=== PATIENT | male | born 1985 | race Caucasian/White ===

== ENCOUNTER 2018-08-02 01:54 | Emergency (ER) | payer MEDICAID, SELFPAY ==
[2018-08-02 01:55] VITALS: BP 150/87; PULSE 88; RESP 18; TEMP 36.6; O2SAT 98; BMI 27.7
--- NOTE | 2018-08-02 02:10 | ED.VISSUMM ---
- ER Visit Summary Date of Service: 08/02/18 Chief Complaint: Anxiety attack History of Present Illness: The patient is a 32 M no significant past medical history other than a prior appendectomy. Patient states he has not seen a doctor for a period of time. Recently received Medicaid insurance. He said he felt anxious about all the tests he needs to get done because he has not had any medical care recently. Said that may be more anxious tonight and he is having a hard time getting calm down. He has had a few anxiety attacks in the past. Physical Examination: Well-appearing young male. Vital signs are stable and afebrile. Pulse ox 90% on room air no signs of hypoxia. HEENT exam normal. Neck nontender. No lymphadenopathy. No thyromegaly. Lungs clear to auscultation bilaterally. Heart regular rate and rhythm rate about 90. No murmurs. Chest nontender. Abdomen soft nontender. Normal bowel sounds no peritoneal signs. Extremities moves all 4. Calves nontender without edema or cords. Normal range of motion to all 4 extremities. 5 out of 5 physician president strength bilaterally. Dorsi plantar flexion intact. Back nontender. Skin unremarkable. Neurologically he is anxious but is awake and alert with no focal motor or sensory deficits. Acting appropriately and answering questions. Test Results: None Emergency Department Course and Treatment: Patient will be referred to local primary care physician for follow-up Treatment Plan: Outpatient follow-up with a local PCP Disposition: Discharge Impression: Acute anxiety attack This note was generated with [employer] dictation software. It may contain incorrect words, spelling, and punctuation that were not noted in review of the chart prior to signing ED Disposition - Plan for ED Patient: Referrals: NOT,DEFINED [Primary Care Provider] -
--- NOTE | 2018-08-02 02:12 | ED.DEP ---
ED Disposition - Plan for ED Patient: Disposition: Home or Assisted Living Instructions: ED Panic Attack Referrals: Hermann Faustin MD [STAFF PHYSICIAN] - 1-2 Weeks Additional Instructions: Call follow-up with a local primary care physician. Stop smoking.
[2018-08-02] MEDS: DiphenhydrAMINE 25 MG Capsule 50 MG PO (02:16)
== END 2018-08-02 02:17 | disposition home or self-care (01) ==
PROVIDERS: Emergency Provider Emergency Medicine
DX: F41.0 Panic disorder [episodic paroxysmal anxiety] (principal); Z72.0 Tobacco use
CPT/HCPCS: 99282

== ENCOUNTER 2018-11-18 15:55 | Observation (INO) | payer MEDICAID, SELFPAY ==
[2018-11-18] VITALS (8 sets, daily range): BP systolic 128–141; BP diastolic 75–93; PULSE 73–92; RESP 16; TEMP 36.8–37.1; O2SAT 96–99; BMI 27.6; BMI 26.3
--- NOTE | 2018-11-18 16:06 | RAD_ITS ---
STUDY: X-RAY CHEST REASON FOR EXAM: Male, 32 years old. Chest pain TECHNIQUE: Portable chest COMPARISON: None. FINDINGS: The lungs are clear and expanded. There is no demonstrated pleural abnormality. Normal size heart. Normal mediastinum and elizabeth. Normal visualized pulmonary arteries. Normal visualized aortic arch and descending thoracic aorta. Normal visualized thoracic spine. Normal visualized ribs, clavicles, and shoulders. There is no demonstrated abnormality of the visualized soft tissue structures of the upper abdomen. RAD/Chest 1 View (Portable) IMPRESSION: Normal x-ray examination of the chest. Electronically Signed: Rl Aceves, at 16:20 EDT Tel , Service support ,
--- NOTE | 2018-11-18 16:06 | EKG12_ITS ---
Test Reason : CP ADMIT EKG Blood Pressure : / mmHG Vent. Rate : 084 BPM Atrial Rate : 084 BPM P-R Int : 164 ms QRS Dur : 082 ms QT Int : 358 ms P-R-T Axes : 069 071 045 degrees QTc Int : 423 ms Normal sinus rhythm Normal ECG When compared with ECG of 18-NOV-2018 15:59, MANUAL COMPARISON REQUIRED, DATA IS UNCONFIRMED Confirmed by LIMA WEBB, JAZMYNE ([id number]), content editor JASON CAZARES ([id number]) on 11/30/2018 2:54:36 PM Referred By: Fariha Larson Confirmed By:JAZMYNE AMATO MD
--- NOTE | 2018-11-18 16:10 | ED.DCSUM_ITS ---
- ER Visit Summary Date of Service: 11/18/18 Chief Complaint: Chest pain History of Present Illness: The patient is a 32 M presenting with chest pain. 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 He began to have midsternal chest pain, 4 out of 10 with radiation to his left shoulder. He states he had shortness of breath, diaphoresis, lightheadedness associated with this. The pain lasted approximately 1 hour. He had no syncope. He denies PE/DVT risk factors. He has a history of hypercholesterolemia that is untreated and family history of heart disease. He is a smoker. Physical Examination: Vitals are stable. Patient is afebrile. Alert no acute distress. HEENT exam is unremarkable. Neck is supple. Lungs are clear and equal bilaterally. Heart is regular rate and rhythm. Abdomen is soft nontender nondistended. Extremities are unremarkable. Skin is warm and dry. No focal neurologic deficit. Remainder of exam is unremarkable. Emergency Department Course and Treatment: Patient was given aspirin on arrival. EKG is sinus rate of 88 with no acute ischemic changes. Chest x-ray shows no acute process. CBC shows white count 12.1. Chemistries unremarkable. Troponin is negative. D-dimer negative. On reevaluation, patient is chest pain-free. Discussed with the hospitalist for observation. Disposition: Observation Impression: Chest pain This note was generated with [employer] dictation software. It may contain incorrect words, spelling, and punctuation that were not noted in review of the chart prior to signing ED Disposition - Plan for ED Patient: Referrals: Care Physician,No Primary [Primary Care Provider] -
[2018-11-18] MEDS: Aspirin 81 MG TAB.CHEW 324 MG PO (16:13)
[2018-11-18 16:15] LABS: Absolute Lymphocyte Count 1.83 X10^3/ul (0.83-4.51); Absolute Neutrophil Count 8.9 X10^3/uL (2.0-7.7); Basophil# 0.07 X10^3/uL; Basophil% 0.6 % (0-1); Eosinophil# 0.35 X10^3/uL; Eosinophils% 2.9 % (0-5); Hematocrit 47.5 % (40-54); Hemoglobin 16.7 g/dl (13.0-16.5); Lymphocyte # 1.83 X10^3/ul (4.0); Lymphocyte % 15.1 % (19-41); Mean Corp Hgb Conc 35.2 g/gl (32-36); Mean Corpuscular Hgb 32.2 pg (27.0-32.0); Mean Corpuscular Volume 91.7 fL (80-94); Mean Platelet Vol. 9.9 fl (6.2-12.0); Monocyte# 0.99 X10^3/uL; Monocyte% 8.2 % (0-10); Neutrophil # 8.85 X10^3/uL (2.7-7.7); Neutrophil % 72.8 % (47-70); Platelet Count 262 K/mm3 (150-450); RBC Distribution Width CV 12.9 % (11.6-14.6); Red Blood Count 5.18 M/mm3 (4.6-6.2); White Blood Count 12.1 K/mm3 (4.4-11.0)
[2018-11-18 16:16] LABS: POSITIVE COUNT NO; POSITIVE DIFFERENTIAL NO; POSITIVE MORPHOLOGY NO
[2018-11-18 16:27] LABS: Anion Gap 5 (5-15); BUN 17 mg/dL (7-18); Calcium,Total 8.9 mg/dL (8.5-10.1); Chloride 105 mmol/L (98-107); EST Glomerular Filtration Rate 90 mL/min (>60); Est Glom Filt Rate - Afr Amer 109 mL/min (>60); Estimated Creatinine Clearance 107.47 ml/min; Glucose 90 mg/dL (74-106); Potassium 3.9 mmol/L (3.5-5.1); Sodium Level 138 mmol/L (136-145)
[2018-11-18 17:10] LABS: D-Dimer Quantitative (DVT/PE) < 0.27 FEU/ug/m (0.27-0.49)
[2018-11-18 18:19] LABS: Hemoglobin A1c 5.5 % (4.2-6.3)
--- NOTE | 2018-11-18 18:26 | PCM.HP.STD ---
Problem List (1) Dyslipidemia Status: Acute (2) Nicotine dependence Status: Chronic Qualifiers: Nicotine product type: cigarettes Substance use status: uncomplicated Qualified Code(s): F17.210 - Nicotine dependence, cigarettes, uncomplicated (3) Alcohol dependence Status: Chronic Qualifiers: Substance use status: uncomplicated Qualified Code(s): F10.20 - Alcohol dependence, uncomplicated (4) Chest pain Status: Acute Qualifiers: Chest pain type: unspecified Qualified Code(s): R07.9 - Chest pain, unspecified (5) Anxiety Status: Chronic History of Present Illness Date of Admission: 11/18/18 Chief Complaint: Chest pain-1 day The patient is a 32 year old M with past medical history of anxiety disorder/panic attacks, nicotine dependence, alcohol dependence who comes in with complaints of chest pain that happened on the day of admission. 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 He was at work when he suddenly had stabbing midsternal chest discomfort that lasted for almost 30 minutes. This was followed soon enough by diaphoresis and lightheadedness. He denied any palpitations. He suddenly also felt very fatigued and felt like he needed to take a nap immediately. The chest discomfort seemed to have moved a little bit to the left shoulder and down the arm. He denied any previous symptoms like this. He has history of panic attacks that comes with palpitations and some chest tightness but nothing like this. Vitals in the ED show temperature of 90 8.3F, heart rate 92, blood pressure 141/90, respiratory 16, SPO2 99% on room air. His admitting blood work showed WBC count of 12.1, hemoglobin 16.7, platelet count of 262, d-dimer was less than 0.27, BMP was unremarkable, HbA1c was 5.5. Admitting chest x-ray was unremarkable. Admitting EKG shows normal sinus rhythm, no acute ST-T changes. Past Medical History Past Medical History (Chronic Problems): Chronic Problems Nicotine dependence (Chronic) Alcohol dependence (Chronic) Anxiety (Chronic) Allergies Penicillins [PCN] Allergy (Verified 11/18/18 15:58) Unknown Home Medications: Ambulatory Orders Medication Instructions Recorded NK 08/02/18 Surgical History: no surgical history Psychiatric History: Anxiety Lives: Alone Smoking Status: Current every day smoker Tobacco Use: Cigarettes Alcohol: Heavy Drugs: Marijuana - occasional - *Family History Maternal History Items: No pertinent history Paternal History Items: No pertinent history Review of Systems Constitutional: Denies: Anorexia, Chills, Fever, Weakness, Weight Change Eyes: Denies: Blurred vision, Cataracts, Conjunctivae Inflammation, Double vision, Redness HEENT: Denies: Difficulty Hearing, Difficulty Swallowing, Head Aches, Hearing Changes, Sinus Congestion, Sinus Drainage Cardiovascular: Reports: Chest Pain, Light Headedness. Denies: Palpitations, Paroxysmal Noc. Dyspnea Respiratory: Denies: Cough, Hemoptysis, Shortness of breath at rest, Shortness of breath upon exertion, Sputum production Gastrointestinal: Denies: Abdominal Pain, Hematemesis, Nausea, Vomiting Genitourinary: Denies: Dysuria, Frequency, Incontinence Musculoskeletal: Denies: Joint Pain, Joint stiffness, Joint swelling, Joint Tenderness Skin: Denies: Rash, Wounds Neurological: Denies: Numbness, Tingling, Focal weakness Psychiatric: Denies: Anxiety, Depression, Homicidal Ideations, Suicidal Ideations Hematologic/ Lymphatic: Denies: Easy Bruising, Easy Bleeding VTE Information - Inpt Only VTE Present on Admission: No VTE Pharm Prophylaxis ordered?: Yes Patient Problems: Active and Suspected Problems Dyslipidemia (Acute) Chest pain (Acute) - Physical Exam General: Alert, Oriented x3, Cooperative, No apparent distress HEENT: Atraumatic, PERRLA, EOMI, Normocephalic Oral: Moist Mucosa Neck: Supple, No JVD, Negative Carotid Bruits Lungs: Clear to auscultation, Normal air movement Cardiovascular: Regular rate, Regular Rhythm, Normal S1, Normal S2, No murmurs Abdomen: Bowel Sounds Present, Soft, Non Tender, Non-Distended, No Hepato-splenomegaly Extremities: No edema Skin: No rashes, No breakdown Musculoskeletal: No Tenderness to Palpation of Joints or Extremities Lymphatic: No Cervical, Supraclavicular, or Inguinal Adenopathy Neurological: Cranial nerves II-XII grossly intact, Neuro grossly intact Psych/Mental Status: Normal Affect, Appropriate Vital Signs Temp Pulse Resp BP Pulse Ox 98.8 F 80 16 131/93 H 97 11/18/18 17:59 11/18/18 18:05 11/18/18 17:59 11/18/18 17:59 11/18/18 17:59 Oxygen Delivery Method Room Air Weight: 83.461 kg Body Mass Index (BMI) 26.3 Laboratory Tests Past 24 Hrs 11/18/18 11/18/18 11/18/18 15:57 15:57 15:57 WBC 12.1 H RBC 5.18 Hgb 16.7 H Hct 47.5 MCV 91.7 MCH 32.2 H MCHC 35.2 RDW 12.9 RDW Differential 43.0 Plt Count 262 MPV 9.9 Immature Gran % (Auto) 0.400 Neut % (Auto) 72.8 H Lymph % (Auto) 15.1 L [place] % (Auto) 8.2 Eos % (Auto) 2.9 Baso % (Auto) 0.6 Absolute Neuts (auto) 8.9 H Absolute Lymphs (auto) 1.83 Total Counted Not Reportable D-Dimer Quant (PE/DVT) < 0.27 L Sodium 138 Potassium 3.9 Chloride 105 Carbon Dioxide 28.0 Anion Gap 5 BUN 17 Creatinine 1.00 Estim Creat Clear Calc 107.47 Est GFR (MDRD) Af Amer 109 Est GFR (MDRD) Non-Af 90 BUN/Creatinine Ratio 17.0 Glucose 90 Hemoglobin A1c Calcium 8.9 Troponin I < 0.015 11/18/18 15:57 WBC RBC Hgb Hct MCV MCH MCHC RDW RDW Differential Plt Count MPV Immature Gran % (Auto) Neut % (Auto) Lymph % (Auto) [place] % (Auto) Eos % (Auto) Baso % (Auto) Absolute Neuts (auto) Absolute Lymphs (auto) Total Counted D-Dimer Quant (PE/DVT) Sodium Potassium Chloride Carbon Dioxide Anion Gap BUN Creatinine Estim Creat Clear Calc Est GFR (MDRD) Af Amer Est GFR (MDRD) Non-Af BUN/Creatinine Ratio Glucose Hemoglobin A1c 5.5 Calcium Troponin I Assessment/Plan All Active Problems Dyslipidemia (Acute) Chest pain (Acute) 32 year old M with past medical history of anxiety disorder/panic attacks, nicotine dependence, alcohol dependence who comes in with complaints of chest pain that happened on the day of admission. 1. Chest pain, atypical, history of hyperlipidemia, smoking, stable vitals, normal EKG Plan: Mid to PCU, monitor on telemetry, trend troponins, stress test in a.m., aspirin 81 mg p.o. daily 2. Leukocytosis, likely reactive, no signs of sepsis, will trend CBCD in a.m. 3. Hyperlipidemia, not on medications, diet controlled, check lipid profile in a.m. 4. Nicotine dependence, advised to quit, will continue nicotine withdrawal protocol 5. Alcohol dependence, advised to quit, will monitor on the CIWA protocol 6. DVT PPx- early ambulation Code Visit OBSV E&M: 95203 Initial observation care L3
--- NOTE | 2018-11-18 18:33 | EKG12_ITS ---
Test Reason : CP Blood Pressure : / mmHG Vent. Rate : 088 BPM Atrial Rate : 088 BPM P-R Int : 164 ms QRS Dur : 078 ms QT Int : 342 ms P-R-T Axes : 076 081 056 degrees QTc Int : 413 ms Normal sinus rhythm with sinus arrhythmia Possible Left atrial enlargement Borderline ECG Confirmed by JONNATHAN COHEN ([id number]), editor city [place] CROFT ([id number]) on 11/26/2018 8:58:58 AM Referred By: Fariha Larson Confirmed By:JONNATHAN COHEN
--- NOTE | 2018-11-19 | NURSING ---
This RN removed patient NicoDerm patch due to stress test scheduled for tomorrow morning and following stress test policy.
[2018-11-19 03:00] VITALS: PULSE 72
[2018-11-19 03:25] VITALS: BP 115/68; PULSE 64; RESP 16; TEMP 36.7; O2SAT 96
[2018-11-19] MEDS: 0.9% NaCl Peripheral Flush Adult/Peds IV (03:53)
[2018-11-19 05:27] LABS: Hematocrit 47.9 % (40-54); Hemoglobin 16.7 g/dl (13.0-16.5); Mean Corp Hgb Conc 34.9 g/gl (32-36); Mean Corpuscular Hgb 31.8 pg (27.0-32.0); Mean Corpuscular Volume 91.2 fL (80-94); Mean Platelet Vol. 9.9 fl (6.2-12.0); Platelet Count 240 K/mm3 (150-450); RBC Distribution Width CV 12.9 % (11.6-14.6); RBC Distribution Width SD 43.1 fl (35.1-43.9); Red Blood Count 5.25 M/mm3 (4.6-6.2); White Blood Count 8.4 K/mm3 (4.4-11.0)
[2018-11-19 05:28] LABS: Scan Indicated on CBC? Y/N NO
[2018-11-19 05:32] LABS: International Normalized Ratio 1.1; Prothrombin Time (Protime)PT. 13.5 SECONDS (11.7-14.9)
[2018-11-19 05:33] LABS: Partial Thromboplast Time 27.8 Seconds (24.1-36.2)
[2018-11-19 05:42] LABS: Anion Gap 6 (5-15); BUN 13 mg/dL (7-18); BUN/Creat Ratio 12.9 RATIO (10-20); Calcium,Total 8.5 mg/dL (8.5-10.1); Chloride 106 mmol/L (98-107); Cholesterol 196 mg/dL (200); Creatinine, Serum 1.01 mg/dL (0.70-1.30); EST Glomerular Filtration Rate 89 mL/min (>60); Est Glom Filt Rate - Afr Amer 108 mL/min (>60); Estimated Creatinine Clearance 106.41 ml/min; Glucose 101 mg/dL (74-106); High Density Lipoprotein 44 mg/dL; Potassium 3.9 mmol/L (3.5-5.1); Sodium Level 140 mmol/L (136-145); Triglycerides 171 mg/dL; Very Low Density Lipoprotein 34 mg/dL (5-40)
[2018-11-19 05:46] VITALS: BP 128/84; PULSE 68; RESP 16; TEMP 36.6; O2SAT 96
[2018-11-19] MEDS: Aspirin E.C. 81 MG Tablet PO (05:48)
--- NOTE | 2018-11-19 05:55 | EKG12_ITS ---
Test Reason : AM EKG Blood Pressure : / mmHG Vent. Rate : 060 BPM Atrial Rate : 060 BPM P-R Int : 176 ms QRS Dur : 088 ms QT Int : 418 ms P-R-T Axes : 078 083 068 degrees QTc Int : 418 ms Normal sinus rhythm with sinus arrhythmia Normal ECG When compared with ECG of 18-NOV-2018 18:53, MANUAL COMPARISON REQUIRED, DATA IS UNCONFIRMED Confirmed by LIMA WEBB, JAZMYNE ([id number]), continuity editor JASON CAZARES ([id number]) on 11/25/2018 12:10:56 PM Referred By: Fariha Larson Confirmed By:JAZMYNE AMATO MD
[2018-11-19 07:18] VITALS: PULSE 62
[2018-11-19 09:10] VITALS: BP 128/77; PULSE 87; RESP 18; TEMP 36.9; O2SAT 98
--- NOTE | 2018-11-19 11:52 | DCINST_ITS ---
- Discharge Diagnoses Current Active Problems: Current Active and Chronic Problems Dyslipidemia (Acute) Nicotine dependence (Chronic) Alcohol dependence (Chronic) Chest pain (Acute) Anxiety (Chronic) You will use the following diet at home:: No restrictions Discharge Activity: Return to Normal Activity Call your doctor if you observe: Shortness of breath, Dizziness, Fainting spells, Chest pain Allergies/Adverse Reactions: Allergies Penicillins [PCN] Allergy (Verified 11/18/18 15:58) Unknown Medications to take at Discharge NK 08/02/18 Primary Care Physician: Care Physician,No Primary [Primary Care Provider] - Please follow up with your Primary Care Physician in: 1 Week Test Results: Test results from this visit will be discussed in further detail at your follow- up appointment, if applicable. Proposed Discharge Date: 11/19/18
--- NOTE | 2018-11-19 11:56 | DS.PCM_ITS ---
<Whitney Patton - Last Filed: 11/19/18 12:57> Discharge Date and Diagnosis Date of Admission: 11/18/18 Date of Discharge: 11/19/18 - Primary Discharge Diagnosis Active and Suspected Problems 1. Atypical chest pain, ACS ruled out 2. Tobacco dependence 3. Alcohol dependence - Secondary Discharge Diagnosis Chronic Problems Nicotine dependence (Chronic) Alcohol dependence (Chronic) Anxiety (Chronic) Hospital Course and Treatment Imaging Results: Diagnostic Data Chest X-Ray 11/18/18 16:06 IMPRESSION: Normal x-ray examination of the chest. Electronically Signed: Rl Aceves, at 16:20 EDT Tel , Service support , Operations: None Procedures: Stress test Summary of Care Provided: The patient is a 32 year old M admitted 11/18/2018 due to chest pain. 1. Atypical chest pain, ACS ruled out-chest x-ray without acute process. Troponin negative. EKG without ST-T changes. Patient underwent stress test which was negative for ischemia. Patient has untreated anxiety disorder and feel this may be contributing to presenting symptoms. Recommend follow-up with primary care provider in 1 week. 2. Tobacco dependence-encouraged tobacco cessation. 3. Alcohol dependence-encouraged alcohol cessation. General: Alert, Oriented x3, Cooperative, No apparent distress HEENT: Atraumatic, PERRLA, EOMI, Normocephalic Oral: Moist Mucosa Neck: Supple, No JVD, Negative Carotid Bruits Lungs: Clear to auscultation, Normal air movement Cardiovascular: Regular rate, Regular Rhythm, Normal S1, Normal S2, No murmurs Abdomen: Bowel Sounds Present, Soft, Non Tender, Non-Distended, No Hepato- splenomegaly Extremities: No edema Skin: No rashes, No breakdown Musculoskeletal: No Tenderness to Palpation of Joints or Extremities Lymphatic: No Cervical, Supraclavicular, or Inguinal Adenopathy Neurological: Cranial nerves II-XII grossly intact, Neuro grossly intact Psych/Mental Status: Normal Affect, Appropriate Patient seen and examined prior to discharge. Physical assessment as noted above. Patient is stable for discharge with follow up recommendations as noted above. This patient was seen by KEON Miranda under the supervision of Dr. Almaraz. - Physical Exam Vital Signs Temp Pulse Resp BP Pulse Ox 98.4 F 87 18 128/77 H 98 11/19/18 09:10 11/19/18 09:10 11/19/18 09:10 11/19/18 09:10 11/19/18 09:10 Oxygen Delivery Method Room Air Weight: 184 lb Body Mass Index (BMI) 26.3 Intake and Output for Last 24 Hours 11/17/18 11/18/18 11/19/18 23:59 23:59 23:59 Intake Total 500 / 500 Balance 500 / 500 Laboratory Tests Past 24 Hrs 11/18/18 11/18/18 11/18/18 15:57 15:57 15:57 WBC 12.1 H RBC 5.18 Hgb 16.7 H Hct 47.5 MCV 91.7 MCH 32.2 H MCHC 35.2 RDW 12.9 RDW Differential 43.0 Plt Count 262 MPV 9.9 Immature Gran % (Auto) 0.400 Neut % (Auto) 72.8 H Lymph % (Auto) 15.1 L [place] % (Auto) 8.2 Eos % (Auto) 2.9 Baso % (Auto) 0.6 Absolute Neuts (auto) 8.9 H Absolute Lymphs (auto) 1.83 Total Counted Not Reportable PT INR APTT D-Dimer Quant (PE/DVT) < 0.27 L Sodium 138 Potassium 3.9 Chloride 105 Carbon Dioxide 28.0 Anion Gap 5 BUN 17 Creatinine 1.00 Estim Creat Clear Calc 107.47 Est GFR (MDRD) Af Amer 109 Est GFR (MDRD) Non-Af 90 BUN/Creatinine Ratio 17.0 Glucose 90 Hemoglobin A1c Calcium 8.9 Troponin I < 0.015 Triglycerides Cholesterol LDL Cholesterol VLDL Cholesterol HDL Cholesterol 11/18/18 11/18/18 11/18/18 15:57 18:45 21:35 WBC RBC Hgb Hct MCV MCH MCHC RDW RDW Differential Plt Count MPV Immature Gran % (Auto) Neut % (Auto) Lymph % (Auto) [place] % (Auto) Eos % (Auto) Baso % (Auto) Absolute Neuts (auto) Absolute Lymphs (auto) Total Counted PT INR APTT D-Dimer Quant (PE/DVT) Sodium Potassium Chloride Carbon Dioxide Anion Gap BUN Creatinine Estim Creat Clear Calc Est GFR (MDRD) Af Amer Est GFR (MDRD) Non-Af BUN/Creatinine Ratio Glucose Hemoglobin A1c 5.5 Calcium Troponin I < 0.015 < 0.015 Triglycerides Cholesterol LDL Cholesterol VLDL Cholesterol HDL Cholesterol 11/19/18 11/19/18 11/19/18 05:00 05:00 05:00 WBC 8.4 RBC 5.25 Hgb 16.7 H Hct 47.9 MCV 91.2 MCH 31.8 MCHC 34.9 RDW 12.9 RDW Differential 43.1 Plt Count 240 MPV 9.9 Immature Gran % (Auto) Neut % (Auto) Lymph % (Auto) [place] % (Auto) Eos % (Auto) Baso % (Auto) Absolute Neuts (auto) Absolute Lymphs (auto) Total Counted PT 13.5 INR 1.1 APTT 27.8 D-Dimer Quant (PE/DVT) Sodium 140 Potassium 3.9 Chloride 106 Carbon Dioxide 28.0 Anion Gap 6 BUN 13 Creatinine 1.01 Estim Creat Clear Calc 106.41 Est GFR (MDRD) Af Amer 108 Est GFR (MDRD) Non-Af 89 BUN/Creatinine Ratio 12.9 Glucose 101 Hemoglobin A1c Calcium 8.5 Troponin I Triglycerides 171 Cholesterol 196 LDL Cholesterol 118 VLDL Cholesterol 34 HDL Cholesterol 44 Discharge Diet: No Restrictions Discharge Activity: Return to Normal Activity Call your doctor if you observe: Shortness of breath, Dizziness, Fainting spells, Chest pain Home Medications: Medications to take at Discharge NK 08/02/18 Primary Care Physician: Care Physician,No Primary [Primary Care Provider] - Please follow up with your Primary Care Physician in: 1 Week Disposition: Home Minutes spent on discharge:: 35 Patient Condition:: Stable Medical Necessity - Tobacco Use Smoking Status: Current every day smoker Tobacco Use: Cigarettes Meaningful Use Info Meaningful Use Diagnoses (Choose all that apply): None applicable <Shelia Almaraz - Last Filed: 11/19/18 14:43> Discharge Date and Diagnosis - Secondary Discharge Diagnosis Chronic Problems Nicotine dependence (Chronic) Alcohol dependence (Chronic) Anxiety (Chronic) Hospital Course and Treatment Summary of Care Provided: Patient seen by Whitney HERBERT under my supervision The patient is a 32 year old M was admitted with a complaint of chest pain which started while she was at work. He thought it was due to anxiety as his job is very stressful. Troponins x3 were negative and EKG showed no acute ST changes. He had a stress test on 11/16/2018 which was also negative. Patient remained stable and was discharged home on 11/19/2018. He was counseled to quit smoking as patient had more to 1 pack daily smoking habit. Is also to follow-up with his primary care doctor for his anxiety. Patient seen and examined prior to discharge. He had no complaints. Chest pain abdominal pain. Review of systems otherwise negative. Labs and vitals reviewed. Home medication reviewed and reconciled. o/e: Vital Signs Height 5 ft 10.08 in Weight: 184 lb Weight in Pounds 184.0 lbs Pulse Ox 98 Temperature 98.4 F Pulse Rate 87 Respiratory Rate 18 Blood Pressure 128/77 Blood Pressure Position Semi-Fowlers [] General: Alert, Oriented x3, Cooperative, No apparent distress HEENT: Atraumatic, PERRLA, EOMI, Normocephalic Oral: Moist Mucosa Neck: Supple, No JVD, Negative Carotid Bruits Lungs: Clear to auscultation, Normal air movement Cardiovascular: Regular rate, Regular Rhythm, Normal S1, Normal S2, No murmurs Abdomen: Bowel Sounds Present, Soft, Non Tender, Non-Distended, No Hepato- splenomegaly Extremities: No edema Skin: No rashes, No breakdown Musculoskeletal: No Tenderness to Palpation of Joints or Extremities Lymphatic: No Cervical, Supraclavicular, or Inguinal Adenopathy Neurological: Cranial nerves II-XII grossly intact, Neuro grossly intact Psych/Mental Status: Normal Affect, Appropriate I have personally reviewed Whitney Patton's note and endorse it. - Physical Exam Vital Signs Temp Pulse Resp BP Pulse Ox 98.4 F 87 18 128/77 H 98 11/19/18 09:10 11/19/18 09:10 11/19/18 09:10 11/19/18 09:10 11/19/18 09:10 Oxygen Delivery Method Room Air Weight: 184 lb Body Mass Index (BMI) 26.3 Intake and Output for Last 24 Hours 11/17/18 11/18/18 11/19/18 23:59 23:59 23:59 Intake Total 1250 / 1250 Balance 1250 / 1250 Laboratory Tests Past 24 Hrs 11/18/18 11/18/18 11/18/18 15:57 15:57 15:57 WBC 12.1 H RBC 5.18 Hgb 16.7 H Hct 47.5 MCV 91.7 MCH 32.2 H MCHC 35.2 RDW 12.9 RDW Differential 43.0 Plt Count 262 MPV 9.9 Immature Gran % (Auto) 0.400 Neut % (Auto) 72.8 H Lymph % (Auto) 15.1 L [place] % (Auto) 8.2 Eos % (Auto) 2.9 Baso % (Auto) 0.6 Absolute Neuts (auto) 8.9 H Absolute Lymphs (auto) 1.83 Total Counted Not Reportable PT INR APTT D-Dimer Quant (PE/DVT) < 0.27 L Sodium 138 Potassium 3.9 Chloride 105 Carbon Dioxide 28.0 Anion Gap 5 BUN 17 Creatinine 1.00 Estim Creat Clear Calc 107.47 Est GFR (MDRD) Af Amer 109 Est GFR (MDRD) Non-Af 90 BUN/Creatinine Ratio 17.0 Glucose 90 Hemoglobin A1c Calcium 8.9 Troponin I < 0.015 Triglycerides Cholesterol LDL Cholesterol VLDL Cholesterol HDL Cholesterol 11/18/18 11/18/18 11/18/18 15:57 18:45 21:35 WBC RBC Hgb Hct MCV MCH MCHC RDW RDW Differential Plt Count MPV Immature Gran % (Auto) Neut % (Auto) Lymph % (Auto) [place] % (Auto) Eos % (Auto) Baso % (Auto) Absolute Neuts (auto) Absolute Lymphs (auto) Total Counted PT INR APTT D-Dimer Quant (PE/DVT) Sodium Potassium Chloride Carbon Dioxide Anion Gap BUN Creatinine Estim Creat Clear Calc Est GFR (MDRD) Af Amer Est GFR (MDRD) Non-Af BUN/Creatinine Ratio Glucose Hemoglobin A1c 5.5 Calcium Troponin I < 0.015 < 0.015 Triglycerides Cholesterol LDL Cholesterol VLDL Cholesterol HDL Cholesterol 11/19/18 11/19/18 11/19/18 05:00 05:00 05:00 WBC 8.4 RBC 5.25 Hgb 16.7 H Hct 47.9 MCV 91.2 MCH 31.8 MCHC 34.9 RDW 12.9 RDW Differential 43.1 Plt Count 240 MPV 9.9 Immature Gran % (Auto) Neut % (Auto) Lymph % (Auto) [place] % (Auto) Eos % (Auto) Baso % (Auto) Absolute Neuts (auto) Absolute Lymphs (auto) Total Counted PT 13.5 INR 1.1 APTT 27.8 D-Dimer Quant (PE/DVT) Sodium 140 Potassium 3.9 Chloride 106 Carbon Dioxide 28.0 Anion Gap 6 BUN 13 Creatinine 1.01 Estim Creat Clear Calc 106.41 Est GFR (MDRD) Af Amer 108 Est GFR (MDRD) Non-Af 89 BUN/Creatinine Ratio 12.9 Glucose 101 Hemoglobin A1c Calcium 8.5 Troponin I Triglycerides 171 Cholesterol 196 LDL Cholesterol 118 VLDL Cholesterol 34 HDL Cholesterol 44 Code Visit Inpatient E&M: 70741 Disch Hosp
--- NOTE | 2018-11-19 11:58 | STRESSREP ---
Stress Test Report Date: 11/19/2018 Procedure: Exercise tolerance test Indications: Chest pain Consent: Per the patient Procedure: The patient exercised on a Jamel protocol for 11 minutes achieving a peak heart rate of 171 bpm (91 % predicted maximal heart rate) with a peak blood pressure 168/76 mmHg and a peak MET capacity of approximately 13.4 mET's. The baseline ECG demonstrated normal sinus rhythm with diffuse ST elevation suggestive of early repolarization. Mild MA depression in multiple leads raises a suspicion of acute pericarditis however the disappearance of ST elevation with exercise is more suggestive of early repolarization. The peak exercise ECG demonstrated sinus tachycardia with no significant ischemic changes. [There were no cardiac dysrhythmias pretest, during exercise, or recovery]. The functional capacity was considered normal for age. The patient had no complaint of chest discomfort during exercise or recovery. The examination was discontinued secondary to leg discomfort. Impression: 1. Technically adequate (percent predicted maximal heart rate greater than 85%) exercise tolerance test 2. Exercise stress test is negative for exercise-induced EKG changes of ischemia or chest pain. 3. [There were no cardiac dysrhythmias during exercise or recovery] This note was generated with [employer]ation software. It may contain incorrect words, spelling, and punctuation that were not noted in checking the note before signing.
--- NOTE | 2018-11-19 12:01 | STRESSREP_ITS ---
Stress Test Report Date: 11/19/2018 Procedure: Exercise tolerance test Indications: Chest pain Consent: Per the patient Procedure: The patient exercised on a Jamel protocol for 11 minutes achieving a peak heart rate of 171 bpm (91 % predicted maximal heart rate) with a peak blood pressure 168/76 mmHg and a peak MET capacity of approximately 13.4 mET's. The baseline ECG demonstrated normal sinus rhythm with diffuse ST elevation suggestive of early repolarization. Mild DC depression in multiple leads raises a suspicion of acute pericarditis however the disappearance of ST elevation with exercise is more suggestive of early repolarization. The peak exercise ECG demonstrated sinus tachycardia with no significant ischemic changes. [There were no cardiac dysrhythmias pretest, during exercise, or recovery]. The functional capacity was considered normal for age. The patient had no complaint of chest discomfort during exercise or recovery. The examination was discontinued secondary to leg discomfort. Impression: 1. Technically adequate (percent predicted maximal heart rate greater than 85%) exercise tolerance test 2. Exercise stress test is negative for exercise-induced EKG changes of ischemia or chest pain. 3. [There were no cardiac dysrhythmias during exercise or recovery] This note was generated with [employer] software. It may contain incorrect words, spelling, and punctuation that were not noted in checking the note before signing.
--- NOTE | 2018-11-19 13:37 | CHAPLAIN ---
Type of Pastoral Visit _x__ Initial Visit ___ Follow-up Visit ___ On-call Visit ___ General Patient Visit ___ Spiritual Assessment ___ Family Conference ___ Bereavement ___ Rapid Response ___ Code Blue ___ Other (describe below) Pastoral Care Referral From _x__ Patient ___ Family ___ Nurse ___ Physician ___ School Based Therapist ___ Automotive Lube Technician ___ Other (describe below) Sacrament/Intervention _x__ Active listening ___ Anointing ___ Uatsdin ___ Bereavement ___ Communion ___ Natali exploration ___ ___ Life review _x__ Prayer ___ Reconciliation ___ Sacrament of Sick _x__ Supportive presence ___ Wedding ___ Other (describe below) Pastoral Comments
== END 2018-11-19 11:51 | disposition home or self-care (01) ==
LOC: ED 16:22 → PCU 17:29
PROVIDERS: Admitting Provider Internal Medicine; Emergency Provider Emergency Medicine; Referring Provider Internal Medicine; Visit Provider Student in an Organized Health Care Education/Training Program
DX: R07.89 Other chest pain (principal); R06.02 Shortness of breath; R42 Dizziness and giddiness; Z82.49 Family history of ischemic heart disease and other diseases of the circulatory system; E78.5 Hyperlipidemia, unspecified; F17.210 Nicotine dependence, cigarettes, uncomplicated; F10.20 Alcohol dependence, uncomplicated; D72.829 Elevated white blood cell count, unspecified
CPT/HCPCS: 36415; 71045; 80048; 80061; 83036; 84484; 85025; 85027; 85379; 85610; 85730; 93005; 93017; 99218; 99285; A4216; G0378

== ENCOUNTER → 2018-12-15 | Outpatient (CLI) | payer MEDICAID, SELFPAY ==
[2018-11-18 17:53] VITALS: BMI 26.3
[2018-12-15 10:52] LABS: Absolute Lymphocyte Count 2.17 X10^3/ul (0.83-4.51); Basophil% 1.3 % (0-1); Eosinophil# 0.56 X10^3/uL; Eosinophils% 7.3 % (0-5); Hematocrit 47.6 % (40-54); Hemoglobin 16.4 g/dl (13.0-16.5); Lymphocyte # 2.17 X10^3/ul (4.0); Lymphocyte % 28.4 % (19-41); Mean Corp Hgb Conc 34.5 g/gl (32-36); Mean Platelet Vol. 10.3 fl (6.2-12.0); Monocyte# 0.82 X10^3/uL; Monocyte% 10.7 % (0-10); Neutrophil # 3.98 X10^3/uL (2.7-7.7); Platelet Count 262 K/mm3 (150-450); RBC Distribution Width CV 13.2 % (11.6-14.6); RBC Distribution Width SD 43.9 fl (35.1-43.9); Red Blood Count 5.12 M/mm3 (4.6-6.2); White Blood Count 7.7 K/mm3 (4.4-11.0)
[2018-12-15 10:55] LABS: POSITIVE COUNT NO; POSITIVE DIFFERENTIAL NO; POSITIVE MORPHOLOGY NO
[2018-12-15 11:02] LABS: ALB/GLOB Ratio 1.3 RATIO (0.9-2.4); AST(SGOT) 17 U/L (15-37); Alanine Aminotransfer ALT/SGPT 47 U/L (16-61); Albumin, Serum 3.9 g/dL (3.2-5.0); Alkaline Phosphatase 69 U/L (45-117); Anion Gap 10 (5-15); BUN 15 mg/dL (7-18); BUN/Creat Ratio 16.1 RATIO (10-20); Calcium,Total 8.7 mg/dL (8.5-10.1); Chloride 105 mmol/L (98-107); Cholesterol 193 mg/dL (200); Creatinine, Serum 0.93 mg/dL (0.70-1.30); EST Glomerular Filtration Rate 98 mL/min (>60); Est Glom Filt Rate - Afr Amer 119 mL/min (>60); Globulin 3.1 g/dL (2.2-4.2); Glucose 96 mg/dL (74-106); High Density Lipoprotein 46 mg/dL; Sodium Level 142 mmol/L (136-145); Triglycerides 162 mg/dL; Very Low Density Lipoprotein 32 mg/dL (5-40)
[2018-12-15 11:08] LABS: Vitamin D,25 Hydroxy 21.4 ng/mL (29.95-100.01)
== END | disposition home or self-care (01) ==
LOC: MTLAB 07:11
PROVIDERS: Family Provider Family Medicine; PCP Family Medicine; Referring Provider Family Medicine; Visit Provider Family Medicine
DX: E78.5 Hyperlipidemia, unspecified (principal); E55.9 Vitamin D deficiency, unspecified; F17.200 Nicotine dependence, unspecified, uncomplicated
CPT/HCPCS: 36415; 80053; 80061; 82306; 85025

== ENCOUNTER → 2018-12-16 | Outpatient (CLI) | payer MEDICAID, SELFPAY ==
[2018-11-18 17:53] VITALS: BMI 26.3
[2018-12-16 07:17] LABS: Bacteria 0 SEEN /hpf (None Seen); Mucous, Urine 0 SEEN /hpf (<or=2+); Red Blood Cells-Urine 0 SEEN /hpf (0-5); Squamous Epithelial Cells - UA 0 SEEN /hpf (0-5); White Blood Cells 0 SEEN /hpf (0-5)
[2018-12-16 09:56] LABS: Color, Urine Yellow (Yellow); Glucose, Dipstick Normal (Normal); Ketone-Dipstick 5 mg/dl (Negative); Leukocyte Esterase-Dipstick Negative /ul (Negative); Nitrite-Dipstick Negative (Negative); Occult Blood-Urine Negative /ul (Negative); Protein-Dipstick Negative (Negative); Specific Gravity, Urine 1.025 (1.002-1.030); Urine Bilirubin Dipstick Negative (Negative); Urine Clarity Clear (Clear); Urine Urobilinogen Normal (Normal)
== END | disposition home or self-care (01) ==
LOC: LAB.FUTURE 07:11
PROVIDERS: Family Provider Family Medicine; PCP Family Medicine; Referring Provider Family Medicine; Visit Provider Family Medicine
DX: E78.5 Hyperlipidemia, unspecified (principal); E55.9 Vitamin D deficiency, unspecified; F17.200 Nicotine dependence, unspecified, uncomplicated
CPT/HCPCS: 81001

== ENCOUNTER → 2019-03-26 07:16 | Outpatient (CLI) | payer MEDICAID, SELFPAY ==
[2019-03-24 07:17] VITALS: BMI 26.7
[2019-03-26 10:49] LABS: Vitamin D,25 Hydroxy 41.4 ng/mL (29.95-100.01)
== END ==
PROVIDERS: Family Provider Family Medicine; PCP Family Medicine; Referring Provider Family Medicine; Visit Provider Family Medicine
DX: E55.9 Vitamin D deficiency, unspecified (principal)
CPT/HCPCS: 36415; 82306

== ENCOUNTER → 2019-04-29 13:09 | Outpatient (CLI) | payer MEDICAID, SELFPAY ==
[2019-03-24 07:17] VITALS: BMI 26.7
== END ==
PROVIDERS: Family Provider Family Medicine; PCP Family Medicine; Referring Provider Internal Medicine Critical Care Medicine; Visit Provider Internal Medicine Critical Care Medicine
DX: G47.10 Hypersomnia, unspecified (principal)
CPT/HCPCS: 95806

== ENCOUNTER → 2019-06-03 20:37 | Outpatient (CLI) | payer MEDICAID, SELFPAY ==
[2019-03-24 07:17] VITALS: BMI 26.7
== END ==
PROVIDERS: Family Provider Family Medicine; PCP Family Medicine; Referring Provider Nurse Practitioner Acute Care; Visit Provider Nurse Practitioner Acute Care
DX: G47.33 Obstructive sleep apnea (adult) (pediatric) (principal)
CPT/HCPCS: 95811

== ENCOUNTER → 2019-06-04 16:25 | Outpatient (CLI) | payer MEDICAID, SELFPAY ==
[2019-03-24 07:17] VITALS: BMI 26.7
== END ==
PROVIDERS: Family Provider Family Medicine; PCP Family Medicine; Referring Provider Family Medicine; Visit Provider Family Medicine
DX: E55.9 Vitamin D deficiency, unspecified (principal)
CPT/HCPCS: 36415; 82306

== ENCOUNTER → 2019-06-18 12:59 | Outpatient (CLI) | payer MEDICAID, SELFPAY ==
[2019-03-24 07:17] VITALS: BMI 26.7
--- NOTE | 2019-06-21 08:15 | PFT ---
INTRODUCTION: The patient is a 33-year-old male that presents for pulmonary function studies secondary to a diagnosis of dyspnea. Respiratory therapy reports good patient effort. Bronchodilators were used during testing. INTERPRETATION: Forced expiration spirometry demonstrates the presence of a mild large airways obstructive ventilatory defect. There was a partial, albeit technically nonsignificant, response to aerosolized bronchodilators. Spirograms are of good quality and do not plateau indicating slow emptying of the lungs. Body plethysmography was performed which revealed lung volumes to be within normal limits. Diffusing capacity by single breath CO is also within normal limits. IMPRESSION: Mild large airways obstructive ventilatory defect with partial, albeit technically nonsignificant, response to aerosolized bronchodilators.
== END ==
PROVIDERS: Family Provider Family Medicine; PCP Family Medicine; Referring Provider Internal Medicine Critical Care Medicine; Visit Provider Internal Medicine Critical Care Medicine
DX: R06.09 Other forms of dyspnea (principal)
CPT/HCPCS: 94060; 94726; 94729

== ENCOUNTER → 2019-11-12 13:59 | Outpatient (CLI) | payer MEDICAID, SELFPAY ==
[2019-09-24 12:49] VITALS: BMI 26.8
== END ==
PROVIDERS: PCP Family Medicine; Visit Provider Nurse Practitioner Acute Care
DX: G47.33 Obstructive sleep apnea (adult) (pediatric) (principal)
CPT/HCPCS: 98960; G0463

== ENCOUNTER → 2020-04-14 15:47 | Outpatient (CLI) | payer MEDICAID, SELFPAY ==
[2019-09-24 12:49] VITALS: BMI 26.8
[2020-04-14 17:49] LABS: Vitamin D,25 Hydroxy 29.3 ng/mL
== END ==
PROVIDERS: PCP Family Medicine; Referring Provider Family Medicine; Visit Provider Family Medicine
DX: E55.9 Vitamin D deficiency, unspecified (principal)
CPT/HCPCS: 36415; 82306

== ENCOUNTER 2020-08-05 00:06 | Emergency (ER) | payer BC, MEDICAID, SELFPAY ==
[2019-09-24 12:49] VITALS: BMI 26.8
[2020-08-05 00:07] VITALS: BP 123/73; PULSE 82; RESP 16; TEMP 36.5; O2SAT 98; BMI 26.9
--- NOTE | 2020-08-05 00:19 | EKG12_ITS ---
Test Reason : CP Blood Pressure : / mmHG Vent. Rate : 078 BPM Atrial Rate : 078 BPM P-R Int : 174 ms QRS Dur : 090 ms QT Int : 376 ms P-R-T Axes : 073 073 046 degrees QTc Int : 428 ms Normal sinus rhythm with sinus arrhythmia Normal ECG Confirmed by LIMA WEBB, JAZMYNE ([id number]), content editor RICO CROFT ([id number]) on 08/07/2020 2:20:20 PM Referred By: Confirmed By:JAZMYNE AMATO MD
[2020-08-05 00:57] VITALS: BP 126/85; PULSE 78; RESP 16; O2SAT 97
--- NOTE | 2020-08-05 00:59 | ED.VIS.GEN ---
History of Present Illness Chief Complaint: Upper Extremity Injury Informant: Patient Narrative: 34-year-old healthy male states that approximately 2200 hrs. today he was attempting to move a heavy dresser. States that after he moved it he began to have a numbness sensation in his left arm traveled down to his hand. Developed the same sensation up to his neck tightness across his chest and he noticed that he was more diaphoretic than what he should be. He began to wonder if he was potentially having a heart attack. He now only notes the tightness in his chest. He states he also has a history of anxiety and states that that could be playing a factor. No familial history of early heart disease. No history of aortic dissection or aneurysm. Past Medical History - Allergies and Home Meds Allergies/Adverse Reactions: Allergies Penicillins [PCN] Allergy (Verified 07/16/19 11:12) Unknown Primary Care Physician: Edward Jose MD [Primary Care Provider] - Past Medical History: None Surgical History: no surgical history Smoking Status: Current every day smoker Drugs: None - Family History Maternal Family History: Family History (Last Reviewed 01/28/20 @ 10:12 by Whitney Austin) Grandfather Cancer Father Hypertension Mother Diabetes Family History: Reports: No pertinent history Paternal Family History: Family History (Last Reviewed 01/28/20 @ 10:12 by Whitney Austin) Grandfather Cancer Father Hypertension Mother Diabetes Family History: Reports: No pertinent history Review of Systems General: Denies: Chills, Fever, Sweats Eyes: Denies: Visual changes - bilaterally, Diplopia ENT: Denies: Rhinorrhea, Sore throat Cardiovascular: Reports: Chest pain. Denies: Palpitations Respiratory: Denies: Dyspnea, Cough, Dyspnea on exertion Gastrointestinal: Denies: Abdominal pain, Nausea, Vomiting, Diarrhea, Melena, Hematochezia Genitourinary: Denies: Dysuria, Hematuria, Frequency Musculoskeletal: Denies: Back pain, Extremity Pain Skin: Reports: - - Diaphoresis. Denies: Rash, Wounds Neurological: Reports: Parasthesia. Denies: Headache, Weakness, Numbness Physical Exam Vital Signs/Narrative: Vital Signs Temp Pulse Resp BP Pulse Ox 08/05/20 00:57 78 16 126/85 H 97 08/05/20 00:07 97.7 F L 82 16 123/73 H 98 Inital Vital Signs reviewed: Yes General: Well nourished, Well developed, No Acute Distress Head: Normocephalic, Atraumatic Eyes: Perrl, EOMI ENT: Moist mucous membranes, No rhinorrhea Neck: Supple, Nontender Cardiovascular: Regular rate, Regular rhythm, No murmurs Respiratory: No distress, CTA bilaterally, Chest nontender Abdomen: Soft, Nontender, Nondistended, Normal bowel sounds Back: Nontender, Normal Inspection Extremities: Nontender, No edema Skin: Normal color, No rash Neurological: Alert, Oriented x3, Cranial nerves II-XII grossly intact, Normal Strength, Normal Sensation Psychological: Normal affect, Normal Mood Diagnostic/Tx/Re-eval Laboratory Last Values WBC 10.0 K/mm3 (4.4-11.0) 08/05/20 01:00 RBC 4.83 M/mm3 (4.6-6.2) 08/05/20 01:00 Hgb 15.5 g/dL (13.0-16.5) 08/05/20 01:00 Hct 44.9 % (40-54) 08/05/20 01:00 MCV 93.0 fL (80-94) 08/05/20 01:00 MCH 32.1 pg (27.0-32.0) H 08/05/20 01:00 MCHC 34.5 g/dL (32-36) 08/05/20 01:00 RDW Std Deviation 42.8 fl (35.1-43.9) 08/05/20 01:00 RDW Coeff of Dianna 12.5 % (11.6-14.6) 08/05/20 01:00 Plt Count 224 K/mm3 (150-450) 08/05/20 01:00 MPV 9.7 fl (6.2-12.0) 08/05/20 01:00 Immature Gran % (Auto) 0.300 % (0.0-0.9) 08/05/20 01:00 Neut % (Auto) 68.5 % (47-70) 08/05/20 01:00 Lymph % (Auto) 19.9 % (19-41) 08/05/20 01:00 [place] % (Auto) 7.5 % (0-10) 08/05/20 01:00 Eos % (Auto) 2.9 % (0-5) 08/05/20 01:00 Baso % (Auto) 0.9 % (0-1) 08/05/20 01:00 Absolute Neuts (auto) 6.8 X10^3/uL (2.0-7.7) 08/05/20 01:00 Absolute Lymphs (auto) 1.99 X10^3/uL (0.83-4.51) 08/05/20 01:00 Nucleated RBC % 0 % (0-5) 08/05/20 01:00 Sodium 137 mmol/L (136-145) 08/05/20 01:00 Potassium 3.8 mmol/L (3.5-5.1) 08/05/20 01:00 Chloride 107 mmol/L (98-107) 08/05/20 01:00 Carbon Dioxide 27.0 mmol/L (21.0-32.0) 08/05/20 01:00 Anion Gap 3 (5-15) L 08/05/20 01:00 BUN 15 mg/dL (7-18) 08/05/20 01:00 Creatinine 0.99 mg/dL (0.70-1.30) 08/05/20 01:00 Estim Creat Clear Calc 106.51 ml/min 08/05/20 01:00 Est GFR (MDRD) Af Amer 110 mL/min (>60) 08/05/20 01:00 Est GFR (MDRD) Non-Af 91 mL/min (>60) 08/05/20 01:00 BUN/Creatinine Ratio 15.2 RATIO (10-20) 08/05/20 01:00 Glucose 106 mg/dL (74-106) 08/05/20 01:00 Calcium 8.7 mg/dL (8.5-10.1) 08/05/20 01:00 Troponin I < 0.015 ng/mL (<0.045) 08/05/20 01:00 - EKG Initial EKG Interpretation: Sinus Rhythm - EKG demonstrates a normal sinus rhythm at a rate of 78 without ectopy or concerning features of ACS - Medical Decision Making Troponin negative. EKG normal sinus rhythm. My interpretation on the single view portable chest x-ray is no acute process normal mediastinal silhouette. This point I do not see evidence of ACS. His symptoms are a bit atypical. I do not think that this is pulmonary embolism, aortic dissection, or other acute emergency. Patient otherwise feels okay is comfortable going home. Return if worsening or concerns ED Disposition - Plan for ED Patient: Disposition: Home or Assisted Living Diagnosis: Chest pain, Paresthesia Instructions: ED Chest Pain, Uncertain Cause Referrals: Edward Jose MD [Primary Care Provider] - 1 Week
[2020-08-05 01:03] LABS: Absolute Lymphocyte Count 1.99 X10^3/uL (0.83-4.51); Absolute Neutrophil Count 6.8 X10^3/uL (2.0-7.7); Basophil# 0.09 X10^3/uL; Basophil% 0.9 % (0-1); Eosinophil# 0.29 X10^3/uL; Eosinophils% 2.9 % (0-5); Hematocrit 44.9 % (40-54); Hemoglobin 15.5 g/dL (13.0-16.5); Lymphocyte # 1.99 X10^3/ul (4.0); Lymphocyte % 19.9 % (19-41); Mean Corp Hgb Conc 34.5 g/dL (32-36); Mean Corpuscular Hgb 32.1 pg (27.0-32.0); Mean Platelet Vol. 9.7 fl (6.2-12.0); Monocyte# 0.75 X10^3/uL; Monocyte% 7.5 % (0-10); NRBC Flagged by Analyzer 0 % (0-5); Neutrophil # 6.84 X10^3/uL (2.7-7.7); Neutrophil % 68.5 % (47-70); Platelet Count 224 K/mm3 (150-450); RBC Distribution Width CV 12.5 % (11.6-14.6); RBC Distribution Width SD 42.8 fl (35.1-43.9); Red Blood Count 4.83 M/mm3 (4.6-6.2)
--- NOTE | 2020-08-05 01:09 | RAD_ITS ---
STUDY: X-RAY CHEST REASON FOR EXAM: Male, 34 years old. PT LIFTED A HEAVY DRESSER A FEW HOURS AGO. SINCE THEN HAS HAD LEFT ARM NUMBNESS AND TINGLING THAT EXTENDS UP TO NECK. SOME TIGHTNESS ACROSS CHEST TECHNIQUE: Single AP portable view of the chest. COMPARISON: None. FINDINGS: The lungs are clear and expanded. There is no demonstrated pleural abnormality. Normal size heart. Normal mediastinum and elizabeth. Normal visualized pulmonary arteries. Normal visualized aortic arch and descending thoracic aorta. Normal visualized thoracic spine. Normal visualized ribs, clavicles, and shoulders. There is no demonstrated abnormality of the visualized soft tissue structures of the upper abdomen. RAD/Chest 1 View (Portable) IMPRESSION: Normal x-ray examination of the chest. Electronically Signed: Marlena Guerrero MD at 1:51 EST Tel , Service support ,
[2020-08-05 01:20] LABS: Anion Gap 3 (5-15); BUN 15 mg/dL (7-18); BUN/Creat Ratio 15.2 RATIO (10-20); Calcium,Total 8.7 mg/dL (8.5-10.1); Chloride 107 mmol/L (98-107); Creatinine, Serum 0.99 mg/dL (0.70-1.30); EST Glomerular Filtration Rate 91 mL/min (>60); Est Glom Filt Rate - Afr Amer 110 mL/min (>60); Estimated Creatinine Clearance 106.51 ml/min; Glucose 106 mg/dL (74-106); Potassium 3.8 mmol/L (3.5-5.1); Sodium Level 137 mmol/L (136-145)
== END 2020-08-05 02:13 | disposition home or self-care (01) ==
PROVIDERS: Emergency Provider Emergency Medicine; PCP Family Medicine
DX: R07.89 Other chest pain (principal); R20.2 Paresthesia of skin; R20.0 Anesthesia of skin; F41.9 Anxiety disorder, unspecified; F17.200 Nicotine dependence, unspecified, uncomplicated
CPT/HCPCS: 71045; 80048; 84484; 85025; 93005; 99284; A4216

== ENCOUNTER → 2020-08-25 11:29 | Outpatient (CLI) | payer BC, MEDICAID, SELFPAY ==
[2020-08-22 09:18] VITALS: BMI 25.8
[2020-08-25 15:00] LABS: Chlamydia Trachomatis by PCR Negative (Negative); Neisserai gonorrhoeae by PCR Negative (Negative); Probe Check PASS; Sample Adequacy Control PASS; Specimen Processing Control PASS
[2020-08-25 16:09] LABS: HIV - WCH Non-Reactive (Nonreactive)
[2020-08-29 07:07] LABS: HSV 1 By PCR Negative (Negative)
[2020-08-29 10:16] LABS: HSV 2 By PCR Negative (Negative)
== END ==
PROVIDERS: PCP Family Medicine; Referring Provider Physician Assistant Surgical; Visit Provider Physician Assistant Surgical
DX: Z11.3 Encounter for screening for infections with a predominantly sexual mode of transmission (principal); Z76.89 Persons encountering health services in other specified circumstances
CPT/HCPCS: 36415; 86703; 87491; 87529; 87591

== ENCOUNTER → 2020-08-25 13:01 | Outpatient (CLI) | payer BC, MEDICAID, SELFPAY ==
[2019-09-24 12:49] VITALS: BMI 26.8
[2020-08-22 09:18] VITALS: BMI 25.8
--- NOTE | 2020-08-26 08:46 | PFT_ITS ---
INTRODUCTION: The patient is a 34-year-old -[place] male that presents for pulmonary function studies secondary to a diagnosis of COPD. Respiratory therapy reports good patient effort. Bronchodilators were used during testing. INTERPRETATION: Forced expiration spirometry demonstrates the presence of a mild large airways obstructive ventilatory defect. There was a significant response to aerosolized bronchodilators noted. Spirograms are of good quality and do not plateau indicating slow emptying of the lungs. Body plethysmography was performed and reveals lung volumes to be within normal limits. Diffusing capacity by single breath CO is also within normal limits. There has been little change in the patient's pulmonary function studies since May 2019. IMPRESSION: Partially reversible mild large airways obstructive ventilatory defect with preserved lung volumes and diffusing capacity. There has been no significant change in the patient's PFTs since May 2019.
== END ==
PROVIDERS: PCP Family Medicine; Referring Provider Internal Medicine Critical Care Medicine; Visit Provider Internal Medicine Critical Care Medicine
DX: J44.9 Chronic obstructive pulmonary disease, unspecified (principal)
CPT/HCPCS: 94060; 94726; 94729

== ENCOUNTER 2020-09-20 17:42 | Emergency (ER) | payer BC, MEDICAID, SELFPAY ==
[2020-09-01 11:20] VITALS: BMI 25.5
[2020-09-20 17:43] VITALS: BP 140/87; PULSE 103; RESP 14; TEMP 37.1; O2SAT 97; BMI 25.8
--- NOTE | 2020-09-20 18:07 | CT_ITS ---
STUDY: CTA HEAD AND NECK WITH CONTRAST REASON FOR EXAM: Male, 34 years old. headache, paraesthesias right RADIATION DOSAGE (If Supplied By Facility): CTDIvol = ( 26.61 ) mGy, DLP = ( 1539.37 ) mGycm TECHNIQUE: CT angiography was performed with a multi-detector CT scanner. Data acquisition was obtained from the skull base through the vertex following intravenous administration of IV 100mL Isovue-370. MIP images were reconstructed from the axial data set. Post-processing of the angiographic images was performed, with multiplanar reformation and 3D reconstruction. Individualized dose optimization techniques were used for this CT. COMPARISON: No relevant priors. FINDINGS: Normal bilateral petrous and cavernous carotid arteries. Anterior cerebral arteries bilaterally. Normal intact anterior communicating artery (ACOM). Normal M1 and M2 segments of the middle cerebral arteries, with normal M1 bifurcations. There is non-visualization of the right posterior communicating artery (PCOM). Normal left posterior communicating artery (PCOM). Normal bilateral vertebral arteries. Normal basilar artery with a normal basilar bifurcation. The visualized bilateral superior cerebellar (SCA) arteries are normal. Normal bilateral P1, P2 and visualized P3 segments of the posterior cerebral arteries. There is no demonstrated aneurysm of the [place]. AORTIC ARCH: Normal visualized aortic arch. Normal origins of the brachiocephalic, left common carotid, and left subclavian arteries. RIGHT CAROTID ARTERIES: Normal right common carotid artery (CCA). Normal right common carotid bulb. Normal origin of the right internal carotid (ICA) artery without stenosis. Normal visualized cervical portion of the right internal carotid artery. Normal origin of the right external carotid artery (ECA). LEFT CAROTID ARTERIES: Normal left common carotid artery (CCA). Normal left common carotid bulb. Normal origin of the left internal carotid (ICA) artery without stenosis. Normal visualized cervical portion of the left internal carotid artery. Normal origin of the left external carotid artery (ECA). VERTEBRAL ARTERIES: Normal bilateral vertebral arteries. CT/CTA Head AND Neck W/ Contrast IMPRESSION: Normal CTA Head and neck with contrast. Electronically Signed: Rocio Auguste MD at 19:54 EDT Tel , Service support ,
[2020-09-20 18:27] LABS: Absolute Lymphocyte Count 1.64 X10^3/uL (0.83-4.51); Absolute Neutrophil Count 9.7 X10^3/uL (2.0-7.7); Basophil# 0.09 X10^3/uL; Basophil% 0.7 % (0-1); Eosinophil# 0.31 X10^3/uL; Eosinophils% 2.4 % (0-5); Hematocrit 45.9 % (40-54); Hemoglobin 15.8 g/dL (13.0-16.5); Lymphocyte # 1.64 X10^3/ul (4.0); Lymphocyte % 12.9 % (19-41); Mean Corp Hgb Conc 34.4 g/dL (32-36); Mean Corpuscular Hgb 31.8 pg (27.0-32.0); Mean Corpuscular Volume 92.4 fL (80-94); Mean Platelet Vol. 9.4 fl (6.2-12.0); Monocyte# 0.83 X10^3/uL; Monocyte% 6.6 % (0-10); NRBC Flagged by Analyzer 0 % (0-5); Neutrophil # 9.73 X10^3/uL (2.7-7.7); Neutrophil % 76.8 % (47-70); Platelet Count 234 K/mm3 (150-450); RBC Distribution Width CV 12.7 % (11.6-14.6); Red Blood Count 4.97 M/mm3 (4.6-6.2); White Blood Count 12.7 K/mm3 (4.4-11.0)
[2020-09-20 18:38] LABS: Anion Gap 5 (5-15); BUN 13 mg/dL (7-18); BUN/Creat Ratio 13.1 RATIO (10-20); Calcium,Total 8.7 mg/dL (8.5-10.1); Chloride 104 mmol/L (98-107); Creatinine, Serum 0.99 mg/dL (0.70-1.30); EST Glomerular Filtration Rate 90 mL/min (>60); Est Glom Filt Rate - Afr Amer 109 mL/min (>60); Estimated Creatinine Clearance 106.51 ml/min; Glucose 98 mg/dL (74-106); Potassium 3.8 mmol/L (3.5-5.1); Sodium Level 136 mmol/L (136-145)
--- NOTE | 2020-09-20 18:49 | ED.DCSUM_ITS ---
- ER Visit Summary Date of Service: 09/20/20 Chief Complaint: [Headache] History of Present Illness: The patient is a 34 M [presents to the emergency department with a headache that he said for about a week. Patient describes this pressure on top of his head on the right side and also intermittent numbness and tingling that kind of radiates on the right side of his face. He is never had discomfort like this before. Typically does not get migraines or headaches. He denies recent illness. He denies Covid exposures. He denies falls or head injuries. No family history of brain tumors or aneurysms. Patient does have history of COPD as well as cholesterol, anxiety, and prior history of alcohol abuse. Patient states that he no longer drinks alcohol. Patient also states that recently he diminished his caffeine intake significantly over the last week.] Patient denies any dental pain or dental issues. Physical Examination: [HEENT-PERRLA, EOMI. Cranial nerves II through XII grossly intact. TMs clear. Mucous membranes moist. No adenopathy. Cardiovascular-regular rate and rhythm without murmur or ectopy Lungs-clear to auscultation, chest wall stable without crepitus or subcu emphysema Abdomen-normoactive bowel sounds, soft, nontender, no rebound or rigidity, no peritoneal signs. Neuro valy-leqsdq-jcdt and heel vaughn testing within normal limits, negative Romberg, negative for drift, fundi benign Extremities-intact ?4, normal range of motion, normal pulses, atraumatic] Test Results: [CBC with differential shows slightly elevated white blood cell count of 12.7, hemoglobin 15.8, hematocrit 46, platelets 234. Chemistries unremarkable. COVID-19 test was negative. CTA of the head and neck was normal.] Emergency Department Course and Treatment: [IV line established. Patient was given Reglan, Benadryl, and Toradol and his headache did seem to improve with that.] Treatment Plan: [Patient advised to follow-up with his primary care physician within next 3 to 5 days. Patient advised to push fluids. Etiology of his headache is unclear although caffeine withdrawal certainly could cause some headache and this could also be atypical migraine.] Disposition: [Discharged home in stable condition] Impression: [Cephalgia] This note was generated with [employer] software. It may contain incorrect words, spelling, and punctuation that were not noted in review of the chart prior to signing ED Disposition - Plan for ED Patient: Referrals: Edward Jose MD [Primary Care Provider] -
[2020-09-20] MEDS: DiphenhydrAMINE 50 MG/ML Syringe 25 MG IV (21:15)
[2020-09-20] MEDS: 0.9% Normal Saline 1,000 ML 999 ML IV (21:15)
[2020-09-20] MEDS: Metoclopramide 10 MG/2 ML Vial IV (21:15)
[2020-09-20] MEDS: Ketorolac 30 MG/ML Syringe IV (21:15)
--- NOTE | 2020-09-20 21:37 | ED.DEP ---
ED Disposition - Plan for ED Patient: Instructions: ED Headache Unspecified Referrals: Edward Jose MD [Primary Care Provider] - 3-5 Days
[2020-09-20 21:59] VITALS: BP 110/79; PULSE 70; RESP 16; O2SAT 98
== END 2020-09-20 22:03 | disposition home or self-care (01) ==
PROVIDERS: Emergency Provider Emergency Medicine; PCP Family Medicine
DX: R51.9 Headache, unspecified (principal); R20.0 Anesthesia of skin; R20.2 Paresthesia of skin; J44.9 Chronic obstructive pulmonary disease, unspecified; Z20.822 Contact with and (suspected) exposure to COVID-19; F41.9 Anxiety disorder, unspecified; Z72.0 Tobacco use
CPT/HCPCS: 70496; 70498; 80048; 85025; 87426; 96361; 96374; 96375; 99283; J7030; Q9967; A4216

== ENCOUNTER → 2021-01-05 06:25 | Outpatient (CLI) | payer BC, MEDICAID, SELFPAY ==
[2020-11-21 15:18] VITALS: BMI 25.8
[2020-12-27 14:00] VITALS: BMI 25.8
--- NOTE | 2021-01-05 06:41 | MRI_ITS ---
STUDY: MRI BRAIN WITH AND WITHOUT CONTRAST REASON FOR EXAM: Male, 35 years old. R FACIAL NUMBNESS, POSTERIOR HEADACHES TECHNIQUE: Standardized multiplanar fat and water weighted pulse sequences were obtained. IV 15 cc dotarem was administered for the contrast portion of the examination. COMPARISON: None. FINDINGS: Normal size of the ventricles and extra-axial spaces for the patient''s age. Normal white matter tracts of the supratentorial brain. There is no evidence for recent intracranial ischemia or other cause of cytotoxic edema on diffusion weighted imaging (DWI). Normal T2* images of the brain without demonstrated susceptibility artifact. There is no demonstrated hemosiderin stain. Normal bilateral basal ganglia. Normal thalami. There is no extra-axial fluid accumulation. Normal flow voids within the major intracranial circulation suggesting patency by spin echo criteria. Normal venous enhancement. There is no enhancing intra-axial or extra-axial abnormality. Normal sella turcica, pituitary gland, infundibular stalk, optic chiasm and hypothalamus. Normal tectal plate and pineal gland. Normal midbrain, mary beht and medulla. Normal cerebellum. Normal basal cisterns. Normal bilateral temporal bones. Normal bilateral internal auditory canals. No demonstrated orbital abnormality, within the constraints of a routine brain study. Normal visualized paranasal sinuses. Normal calvarium and skull base. Normal visualized soft tissue structures. Normal visualized upper cervical spine. MRI/Brain W/WO Contrast IMPRESSION: Normal unenhanced and enhanced MRI of the brain. Electronically Signed: Brandon Petty MD at 11:51 EDT Tel , Service support ,
== END ==
PROVIDERS: PCP Family Medicine; Referring Provider Family Medicine; Visit Provider Family Medicine
DX: R20.0 Anesthesia of skin (principal)
CPT/HCPCS: 70553; A9575

== ENCOUNTER → 2021-01-25 09:17 | Outpatient (CLI) | payer BC, MEDICAID, SELFPAY ==
[2021-01-25 08:17] VITALS: BMI 21.2
--- NOTE | 2021-01-25 09:20 | RAD_ITS ---
STUDY: X-RAY - CERVICAL SPINE REASON FOR EXAM: Male, 35 years old. Neck pain and headache TECHNIQUE: 3 view(s) of the cervical spine were obtained. COMPARISON: None FINDINGS: Normal anterior atlantoaxial articulation. Normal odontoid process. Normal cervical lordosis. Normal vertebral bodies and endplates. Normal disc space heights. Normal visualized intervertebral neuroforamina. The soft tissue structures are unremarkable. RAD/Cerv Spine 2 or 3 Views IMPRESSION: Normal x-ray examination of the visualized cervical spine. Electronically Signed: Alex Hollingsworth MD at 7:53 EDT , Service support ,
== END ==
PROVIDERS: PCP Family Medicine; Referring Provider Psychiatry & Neurology Neurology; Visit Provider Psychiatry & Neurology Neurology
DX: M54.2 Cervicalgia (principal)
CPT/HCPCS: 72040

== ENCOUNTER → 2021-06-27 | Outpatient (CLI) | payer BC, MEDICAID, SELFPAY | END | disposition home or self-care (01) | PROVIDERS: PCP Family Medicine; Referring Provider Physician Assistant; Visit Provider Physician Assistant | DX: Z11.52 Encounter for screening for COVID-19 (principal) | CPT/HCPCS: 87635; U0005; U0003 ==

== ENCOUNTER → 2023-01-01 | Outpatient (CLI) | payer BC, MEDICAID, SELFPAY ==
[2023-01-01 13:03] LABS: Absolute Lymphocyte Count 2.24 X10^3/uL (0.83-4.51); Absolute Neutrophil Count 5.4 X10^3/uL (2.0-7.7); Basophil# 0.11 X10^3/uL; Basophil% 1.2 % (0-1); Eosinophil# 0.68 X10^3/uL; Eosinophils% 7.3 % (0-5); Hematocrit 47.2 % (40-54); Hemoglobin 16.2 g/dL (13.0-16.5); Lymphocyte # 2.24 X10^3/ul (0.83-4.51); Lymphocyte % 23.9 % (19-41); Mean Corp Hgb Conc 34.3 g/dL (32-36); Mean Corpuscular Volume 93.3 fL (80-94); Mean Platelet Vol. 10.2 fl (6.2-12.0); Monocyte# 0.86 X10^3/uL; Monocyte% 9.2 % (0-10); NRBC Flagged by Analyzer 0 % (0-5); Neutrophil # 5.43 X10^3/uL (2.7-7.7); Neutrophil % 57.9 % (47-70); Platelet Count 229 K/mm3 (150-450); RBC Distribution Width CV 13.1 % (11.6-14.6); RBC Distribution Width SD 44.6 fl (35.1-43.9); Red Blood Count 5.06 M/mm3 (4.6-6.2); White Blood Count 9.4 K/mm3 (4.4-11.0)
[2023-01-01 14:01] LABS: ALB/GLOB Ratio 1.3 RATIO (0.9-2.4); AST(SGOT) 18 U/L (15-37); Alanine Aminotransfer ALT/SGPT 45 U/L (16-61); Albumin, Serum 3.8 g/dL (3.2-5.0); Alkaline Phosphatase 57 U/L (45-117); Anion Gap 7 (5-15); BUN 15 mg/dL (7-18); BUN/Creat Ratio 14.3 RATIO (10-20); Calcium,Total 8.8 mg/dL (8.5-10.1); Chloride 109 mmol/L (98-107); Creatinine, Serum 1.05 mg/dL (0.70-1.30); EST Glomerular Filtration Rate 84 mL/min (>60); Est Glom Filt Rate - Afr Amer 101 mL/min (>60); Glucose 97 mg/dL (74-106); Potassium 3.9 mmol/L (3.5-5.1); Protein, Total 6.8 g/dL (6.4-8.2); Sodium Level 139 mmol/L (136-145)
== END | disposition home or self-care (01) ==
PROVIDERS: PCP Family Medicine; Visit Provider Family Medicine
DX: R10.11 Right upper quadrant pain (principal)
CPT/HCPCS: 36415; 80053; 85025

== ENCOUNTER → 2023-01-11 | Outpatient (CLI) | payer BC, MEDICAID, SELFPAY ==
--- NOTE | 2023-01-11 09:11 | US_ITS ---
ACR Level 3 findings have been noted. An addendum which confirms receipt of the report will follow. PROCEDURE: ABDOMINAL ULTRASOUND, RIGHT UPPER QUADRANT COMPARISONS: None. CLINICAL INDICATION: RUQ ABD PAIN TECHNIQUE: Real-time acosta-scale abdominal ultrasound. Limited color Doppler evaluation is performed. FINDINGS: Liver: Normal in size with diffusely increased echotexture. Hypoechoic focus at the capsular surface of the left lobe measures 1.7 x 1.6 x 1.5 cm. Appropriate hepatopetal flow is present in the main portal vein. Gallbladder: Normal wall thickness. No gallstones. Sonographic Reyna''s sign is absent. No pericholecystic fluid is present. Biliary Tree: Nondilated. Common bile duct measures 5 mm. Pancreas: Limited evaluation of the head and body is unremarkable. Right kidney: Normal in size and echogenicity. No hydronephrosis or stones. The right kidney measures 10.2 cm in long axis. No free fluid. US/Abdomen Limited IMPRESSION: Diffuse fatty infiltration of the liver. Focal area of hypoechoic echotexture in the left lobe may represent focus of fatty sparing but other etiology not excluded. Recommend dedicated multiphasic hepatic CT or MRI for further evaluation. No acute findings in the right upper quadrant. Electronically Signed: Danilo Julien MD at 23:40 EDT ,
== END | disposition home or self-care (01) ==
PROVIDERS: PCP Family Medicine; Referring Provider Family Medicine; Visit Provider Family Medicine
DX: R10.11 Right upper quadrant pain (principal)
CPT/HCPCS: 76705

== ENCOUNTER → 2023-01-14 | Outpatient (CLI) | payer BC, MEDICAID, SELFPAY ==
--- NOTE | 2023-01-14 17:58 | CT_ITS ---
INDICATION: LIVER MASS EXAMINATION: CT ABDOMEN WITH AND WITHOUT CONTRAST TECHNIQUE: Helically acquired images were obtained of the abdomen both before and after IV contrast, capturing both the cortical and nephrographic phases. A radiation dose optimization technique was used for this scan. IV Contrast dosage and agent: 100mL Isovue-370 Oral contrast: Readi-CAT RADIATION DOSAGE (If Supplied By Facility): CTDIvol = ( 13.78 ) mGy, DLP = ( 1323.54 ) mGycm COMPARISON: Right upper quadrant ultrasound January 11, 2023 FINDINGS: LOWER CHEST: Lung bases are clear. No cardiomegaly or pericardial effusion. LIVER: Homogeneous. On the initial axial images postcontrast, a 1.5 x 1.5 cm hyperenhancing lesion is questioned in the superior left lobe of liver, possibly corresponding to the area of question on ultrasound. This is difficult to identify on the reformatted images, however, so it is unclear if this is simply an element of hepatic vein reflux or other volume averaging rather than a true lesion. Liver density appears within normal limits. Patent portal vein diameter 16.4 mm. GALLBLADDER AND BILIARY TREE: No calcified gallstones. No gallbladder distension or wall edema. No intra- or extrahepatic biliary ductal dilation. PANCREAS: No focal cystic or solid mass. SPLEEN: Normal size without focal cystic or solid mass. ADRENAL GLANDS: No nodules. KIDNEYS AND URETERS: Normal renal size and position. No hydronephrosis or nephrolithiasis. PERITONEUM: No ascites or free air. No other fluid collection. BOWEL: No stomach or bowel distension. No focal inflammatory change. Benign-appearing lymph nodes are evident in the mesentery. LYMPH NODES: No enlarged mesenteric or retroperitoneal lymph nodes. VESSELS: Aorta is non-dilated. ABDOMINAL WALL: No discrete abdominal wall hernia. BONES: No lytic or blastic abnormality. Small Schmorl''s nodes are seen invaginating the inferior T11 and T12 vertebral endplates. CT/Abdomen W/WO IV Contrast IMPRESSION: Questionable 1.8 cm hemangioma versus artifact during bolus contrast enhancement in the superior left lobe of the liver, roughly corresponding to size and location of the area questioned on ultrasound. The overall liver density here otherwise appears within normal limits. No other suspicious findings are identified. Electronically Signed: Alex Francis MD at 7:44 EDT Reading Location ID and State: [id number] / Unknown , Service support ,
== END | disposition home or self-care (01) ==
LOC: CT 17:54
PROVIDERS: PCP Family Medicine; Visit Provider Family Medicine
DX: R16.0 Hepatomegaly, not elsewhere classified (principal)
CPT/HCPCS: 74170; Q9967

== ENCOUNTER → 2023-06-26 | Outpatient (CLI) | payer OTHER, SELFPAY ==
--- NOTE | 2023-06-26 13:41 | RAD_ITS ---
INDICATION: puncture wound left hand EXAMINATION/TECHNIQUE: X-RAY - LEFT XR Hand Min 3 Views 3 VIEWS COMPARISON: No relevant prior comparison study available FINDINGS: SOFT TISSUES: No soft tissue swelling or gas. No radiopaque foreign body. BONES/JOINTS: No acute fracture or subluxation.. Normal alignment. Preservation of the joint space.. No sclerotic or destructive changes observed. RAD/Hand Min 3 Views IMPRESSION: No evidence of acute fracture or dislocation. Electronically Signed: Alberto Carroll MD at 14:37 EST ,
== END | disposition home or self-care (01) ==
LOC: MTRAD 13:32
PROVIDERS: PCP Family Medicine; Referring Provider Physician Assistant Surgical; Visit Provider Physician Assistant Surgical
DX: S61.432A Puncture wound without foreign body of left hand, initial encounter (principal); X58.XXXA Exposure to other specified factors, initial encounter
CPT/HCPCS: 73130

== ENCOUNTER → 2023-08-01 | Outpatient (CLI) | payer BC, SELFPAY ==
[2023-08-01 18:02] LABS: Absolute Lymphocyte Count 1.76 X10^3/uL (0.83-4.51); Absolute Neutrophil Count 4.2 X10^3/uL (2.0-7.7); Basophil% 1.4 % (0-1); Eosinophil# 0.47 X10^3/uL; Eosinophils% 6.4 % (0-5); Hematocrit 44.8 % (40-54); Hemoglobin 15.3 g/dL (13.0-16.5); Lymphocyte # 1.76 X10^3/ul (0.83-4.51); Mean Corp Hgb Conc 34.2 g/dL (32-36); Mean Corpuscular Hgb 31.5 pg (27.0-32.0); Mean Corpuscular Volume 92.2 fL (80-94); Monocyte# 0.78 X10^3/uL; Monocyte% 10.7 % (0-10); NRBC Flagged by Analyzer 0 % (0-5); Neutrophil # 4.17 X10^3/uL (2.7-7.7); Platelet Count 217 K/mm3 (150-450); RBC Distribution Width CV 12.7 % (11.6-14.6); RBC Distribution Width SD 43.4 fl (35.1-43.9); Red Blood Count 4.86 M/mm3 (4.6-6.2); White Blood Count 7.3 K/mm3 (4.4-11.0)
[2023-08-01 18:27] LABS: Vitamin B12 562 pg/mL (211-911); Vitamin D,25 Hydroxy 13.8 ng/mL
[2023-08-01 18:35] LABS: ALB/GLOB Ratio 1.4 RATIO (0.9-2.4); AST(SGOT) 17 U/L (15-37); Alanine Aminotransfer ALT/SGPT 45 U/L (16-61); Alkaline Phosphatase 69 U/L (45-117); Anion Gap 3 (5-15); BUN 12 mg/dL (7-18); BUN/Creat Ratio 12.4 RATIO (10-20); Calcium,Total 8.9 mg/dL (8.5-10.1); Chloride 110 mmol/L (98-107); Creatinine, Serum 0.97 mg/dL (0.70-1.30); EST Glomerular Filtration Rate 91 mL/min (>60); Est Glom Filt Rate - Afr Amer 111 mL/min (>60); Globulin 2.9 g/dL (2.2-4.2); Glucose 88 mg/dL (74-106); Potassium 3.7 mmol/L (3.5-5.1); Protein, Total 6.9 g/dL (6.4-8.2); Sodium Level 138 mmol/L (136-145); T4 Free Direct 0.94 ng/dL (0.76-1.46)
== END | disposition home or self-care (01) ==
LOC: MFPLAB 16:55
PROVIDERS: PCP Family Medicine; Visit Provider Family Medicine
DX: R53.83 Other fatigue (principal)
CPT/HCPCS: 36415; 80053; 82306; 82607; 84439; 84443; 85025

== ENCOUNTER → 2024-07-27 | Outpatient (CLI) | payer OTHER, SELFPAY ==
--- NOTE | 2024-07-27 07:20 | US_ITS ---
PROCEDURE: ABDOMEN LIMITED REASON FOR EXAM: Right upper quadrant pain. COMPARISON: Comparison is made with prior study dated January 11, 2023. FINDINGS: Liver: Diffusely echogenic suggesting fatty infiltration. Liver measures 17.6 cm. Stable 1.3 cm x 1.1 cm x 0.9 cm hypoechoic nodule in the left lobe of the liver. Gallbladder: No stones, sludge, wall thickening or tenderness. Common bile duct: Normal measuring 5 mm.. Pancreas: Obscured by bowel gas. Visualized portions of the right kidney are unremarkable. No right upper quadrant ascites. US/Abdomen Limited IMPRESSION: Borderline hepatomegaly. Fatty infiltration of the liver. Stable 1.3 cm x 1.1 cm x 0.9 cm hypoechoic nodule in the left lobe of the liver . On prior CT scan, this was suspected to be a hemangioma. Reading Location: [id number]
== END | disposition home or self-care (01) ==
PROVIDERS: PCP Family Medicine
DX: R10.11 Right upper quadrant pain (principal)
CPT/HCPCS: 76705; A4216

== ENCOUNTER → 2024-11-05 | Outpatient (CLI) | payer OTHER, SELFPAY ==
[2024-11-05 07:07] LABS: Absolute Lymphocyte Count 2.68 X10^3/uL (0.83-4.51); Absolute Neutrophil Count 4.7 X10^3/uL (2.0-7.7); Basophil# 0.14 X10^3/uL; Basophil% 1.6 % (0-1); Eosinophil# 0.53 X10^3/uL; Eosinophils% 5.9 % (0-5); Hematocrit 45.6 % (40-54); Hemoglobin 15.7 g/dL (13.0-16.5); Lymphocyte # 2.68 X10^3/ul (0.83-4.51); Lymphocyte % 30.1 % (19-41); Mean Corp Hgb Conc 34.4 g/dL (32-36); Mean Corpuscular Hgb 31.7 pg (27.0-32.0); Mean Corpuscular Volume 92.1 fL (80-94); Mean Platelet Vol. 9.8 fl (6.2-12.0); Monocyte# 0.79 X10^3/uL; Monocyte% 8.9 % (0-10); NRBC Flagged by Analyzer 0 % (0-5); Neutrophil # 4.73 X10^3/uL (2.7-7.7); Neutrophil % 53.1 % (47-70); Platelet Count 237 K/mm3 (150-450); RBC Distribution Width CV 12.9 % (11.6-14.6); RBC Distribution Width SD 43.4 fl (35.1-43.9); Red Blood Count 4.95 M/mm3 (4.6-6.2); White Blood Count 8.9 K/mm3 (4.4-11.0)
[2024-11-05 07:48] LABS: AST(SGOT) 20 U/L (<=37); Alanine Aminotransfer ALT/SGPT 31 U/L (<=46); Albumin, Serum 4.4 g/dL (3.5-5.0); Alkaline Phosphatase 71 U/L (40-129); Anion Gap 10 (5-15); BUN 13 mg/dL (4-19); BUN/Creat Ratio 13.8 RATIO (10-20); Carbon Dioxide 21.4 mmol/L (21.0-32.0); Chloride 107 mmol/L (98-108); Cholesterol 205 mg/dL (<=200); Creatinine, Serum 0.93 mg/dL (0.70-1.20); EST Glomerular Filtration Rate 107 (>60); Globulin 2.3 g/dL (2.2-4.2); Glucose 110 mg/dL (70-99); High Density Lipoprotein 33 mg/dL; Low Density Lipoprotein Calc. 147 mg/dL; Potassium 4.1 mmol/L (3.3-5.1); Protein, Total 6.7 g/dL (5.9-8.4); Sodium Level 139 mmol/L (133-145); Total Bilirubin 0.52 mg/dL (0.00-1.30); Triglycerides 130 mg/dL; Very Low Density Lipoprotein 26 mg/dL (5-40); cholesterol:hdl ratio screen 6.31
[2024-11-05 07:50] LABS: CRP < 3.00 mg/L (0.0-3.0)
[2024-11-05 09:51] LABS: Hemoglobin A1c 5.7 % (<=5.6)
== END | disposition home or self-care (01) ==
LOC: LAB 06:25
PROVIDERS: PCP Family Medicine
DX: K59.00 Constipation, unspecified (principal); K21.9 Gastro-esophageal reflux disease without esophagitis; R10.9 Unspecified abdominal pain
CPT/HCPCS: 36415; 80053; 80061; 83036; 85025; 86140

== ENCOUNTER → 2024-11-10 | Outpatient (CLI) | payer OTHER, SELFPAY ==
[2024-11-15 16:09] LABS: Calprotectin, Stool 55 ug/g (0-120)
== END | disposition home or self-care (01) ==
LOC: LAB 19:19
PROVIDERS: PCP Family Medicine
DX: K21.9 Gastro-esophageal reflux disease without esophagitis (principal); R10.9 Unspecified abdominal pain; K59.00 Constipation, unspecified
CPT/HCPCS: 83993

== ENCOUNTER → 2024-11-15 | Outpatient (CLI) | payer OTHER, SELFPAY ==
--- NOTE | 2024-11-15 07:27 | US_ITS ---
PROCEDURE: ABD LIMITED W/ ELASTOGRAPHY REASON FOR EXAM: FATTY LIVER SEEN ON PREVIOUS EXAM COMPARISON: Prior study dated July 27, 2024. TECHNIQUE: Right upper quadrant abdominal ultrasound. [facility] ElastQ Imaging shear wave elastography for non-invasive assessment of liver tissue stiffness. [facility] EPIQ Elite. FINDINGS: LIVER: Size: Unremarkable Length: 16.6 cm Echotexture: Diffusely echogenic suggesting fatty infiltration Contour: Normal Lesions: None identified Elastography: EQI Med: 9.5 kPa EQI Med [place]ilo: 1.77 m/s IQR/Med: 24 %* GALLBLADDER: Normal COMMON BILE DUCT: Normal . PANCREAS: Normal Visualized portions of the right kidney are unremarkable. No right upper quadrant ascites. US/ABD Limited w/ Elastography IMPRESSION: [id number] hepatic fibrosis. Fatty infiltration of the liver. Reference Values: SRU <1.37 m/s (5.7kPa): No to mild fibrosis 1.37 m/s - 2.2 m/s: Moderate to severe fibrosis >2.2 m/s (15kPa): Significant fibrosis / cirrhosis METAVIR Score F2 or higher: 1.34 m/s (5.7kPa) F3 or higher: 1.55 m/s (7.3kPa) F4: 1.80 m/s (10kPa) * If the IQR/Med is >30%, the variance in the measurements is a large and the a ccuracy of the measurement may be in question. Reading Location: [place] [id number]
== END | disposition home or self-care (01) ==
LOC: US 07:23
PROVIDERS: PCP Family Medicine
DX: K21.9 Gastro-esophageal reflux disease without esophagitis (principal); R10.9 Unspecified abdominal pain; K59.00 Constipation, unspecified
CPT/HCPCS: 76705; 76981

== ENCOUNTER → 2024-11-25 | Outpatient (CLI) | payer OTHER, SELFPAY ==
--- NOTE | 2024-11-25 08:08 | NM_ITS ---
PROCEDURE: HEPATOBILLIARY IMG W/PHARM INT 11/25/2024 REASON FOR EXAM: RUQ ABD PAIN WORSENED BY FATTY FOODS TECHNIQUE: Intravenous Choletec with planar imaging of the abdomen. 1.7 mcg Kinevac intravenously approximately 6 minutes after the radiopharmaceutical with additional anterior imaging and a region of interest drawn around the gallbladder to calculate a time-activity curve. RADIOPHARMACEUTICAL: Mebrofenin DOSE 6mCi COMPARISON: Prior gallbladder sonogram FINDINGS: There is good uptake of the radiopharmaceutical by the liver. Normal gallbladder visualization with the gallbladder identified by 30 minutes. Gallbladder Ejection Fraction: 94% % (Normal is >35%) NM/Hepatobilliary Img w/Pharm Int IMPRESSION: Normal examination. Normal gallbladder ejection fraction. Reading Location: [id number]
== END | disposition home or self-care (01) ==
LOC: NM 08:07
PROVIDERS: PCP Family Medicine
DX: R10.11 Right upper quadrant pain (principal); K21.9 Gastro-esophageal reflux disease without esophagitis; K59.00 Constipation, unspecified
CPT/HCPCS: 78227; A9537; J2805

== ENCOUNTER 2025-01-10 07:29 | Day surgery (SDC) | payer OTHER, SELFPAY ==
[2025-01-10] VITALS (8 sets, daily range): BP systolic 105–109; BP diastolic 73–81; PULSE 70–82; RESP 16; TEMP 36.1–36.6; O2SAT 92–97; BMI 26.5
[2025-01-10] MEDS: Lactated Ringers 1,000 ML 15 ML IV (08:00)
--- NOTE | 2025-01-10 08:11 | PCM.PRE.AN2 ---
ASA Classification* ASA Classification ASA Classification: 2 Assessment & Plan Anesthesia* Anesthesia Assessment Anesthesia Assessment: Discussed sedation and/or anesthesia options, risks, benefits, and alternatives with patient/parents/legal guardian/POA. Questions invited. The patient/parents/legal guardian/POA seems to understand and agrees to proceed with anesthesia plan. Reviewed the physical assessment, medical history, allergy history and patient home medications list prior to surgery/procedure/anesthetic and documented any changes. Performed airway and anesthesia risk assessments. Anesthesia Type Anesthesia Type: MAC History Source History Obtained from:: Patient and Chart Anesthesia Focused Assessment* Temperature: 97.8 F Pulse Rate: 82 Blood Pressure: 106/77 Respiratory Rate: 16 Pulse Ox: 97 Oxygen Delivery Method: Room Air Airway Assessment Mouth opens: >3 cm Mallampati Score: I Teeth Condition: Intact Neck Range of motion (ROM): Full ROM Labs Anesthesia Preop lab: CBC WBC 8.9 K/mm3 (4.4-11.0) 11/05/24 06:11/05/24 RBC 4.95 M/mm3 (4.6-6.2) 11/05/24 06:34 11/05/24 Hgb 15.7 g/dL (13.0-16.5) 11/05/24 06:34 11/05/24 Hct 45.6 % (40-54) 11/05/24 06:34 11/05/24 Plt Count 237 K/mm3 (150-450) 11/05/24 06:34 11/05/24 CHEMISTRY Potassium 4.1 mmol/L (3.3-5.1) 11/05/24 06:34 11/05/24 Sodium 139 mmol/L (133-145) 11/05/24 06:34 11/05/24 BUN 13 mg/dL (4-19) 11/05/24 06:34 11/05/24 Creatinine 0.93 mg/dL (0.70-1.20) 11/05/24 06:34 11/05/24 Glucose 110 mg/dL (70-99) H 11/05/24 06:34 11/05/24 TSH 1.00 uIU/mL (0.358-3.74) 08/01/23 16:56 08/01/23 COAG PT 13.5 SECONDS (11.7-14.9) 11/19/18 05:00 11/19/18 Pre-Assessment Diagnosis/Proposed Procedure Planned Operative Procedure(s): EGD Anesthesia History 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 When Was Last Pacemaker Check QUESTION #4 FULL TEXT: You/Your Family Experience fever (hyperthermia) with Anesthesia Last Oral Intake Last Oral intake: Last Oral Intake NPO since 23:00 01/10/25 07:49 Meds taken in AM with sips of Yes 01/10/25 07:49 water? Meds patient instructed to see med list 01/10/25 07:49 take am of surgery PONV PONV - ethnoarchaeology professor: PONV - ethnoarchaeology professor Female No 01/06/25 12:27 HX of Motion Sickness No 01/06/25 12:27 HX of N/V After Surgery No 01/06/25 12:27 Non-Smoker No 01/06/25 12:27 Duration of Surgery greater No 01/06/25 12:27 than 60 minutes Number of Risk Factors PONV Score Height & Weight Height & Weight: Anesthesia: Height & Weight Height 5 ft 10 in 01/10/25 07:49 Weight: 84 kg 01/10/25 07:49 Body Mass Index (BMI) 26.5 01/10/25 07:49 Respiratory Assessment Respiratory Assessment - ethnoarchaeology professor: Respiratory Tract Infection Hx - ethnoarchaeology professor Hx Respiratory Tract Infection No 01/06/25 12:27 STOP Sleep Apnea STOP Sleep Apnea - ethnoarchaeology professor: STOP Sleep Apnea - ethnoarchaeology professor Hx Hypertension No 01/06/25 12:27 Hx Sleep Apnea No 01/06/25 12:27 CPAP BIPAP Do you snore loudly (louder Yes 01/06/25 12:27 than talking or can be heard Do you often feel tired/ No 01/06/25 12:27 fatigued/ sleepy during daytime? Has anyone observed you stop Yes 01/06/25 12:27 breathing during sleep? STOP Results Positive 01/06/25 12:27 QUESTION #5 FULL TEXT : Do you snore loudly (louder than talking or can be heard through closed doors)? 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 Specify any problems Hx of Preganancy in last 3 N/A 01/06/25 12:27 Months Nurse Filling Out Transfusion DSCHRIBER 01/06/25 12:27 & Questions: Date: 01/06/25 01/06/25 12:27 Time: 12:29 01/06/25 12:27 Patient unable to answer at this time (ie. confused, unrespo /Reproduction History /Reproductive History - ethnoarchaeology professor: /Reproductive Hx- ethnoarchaeology professor Hx Now No 01/06/25 12:27 Gestational Age (in weeks): EDC: Hx Hx Para Hx Section SAB No 01/06/25 12:27 Active Medications Active Medications: Current Medications Generic Name Dose Route Start Last Admin Trade Name Freq PRN Reason Stop Dose Admin Lactated Ringer's 1,000 mls @ 15 mls/hr 01/10/25 07:45 01/10/25 08:00 IV 15 mls/hr .Q48H YOUSIF Administration PFSH Medical History Anxiety Back pain Injury of head and neck Blackout Gastric reflux Asthma Smoker History of pain when walking History of stress test Home Medications Medication Instructions Recorded Last Taken Type albuterol sulfate 90 mcg/actuation 2 puff inhalation Q6H PRN 09/01/20 Unknown Rx aerosol inhaler (Ventolin HFA) shortness of breath or wheezing #18 grams naproxen 500 mg tablet 500 mg PO BID PRN headache/neck 05/05/23 Unknown Rx pain #60 tabs esomeprazole magnesium 40 mg 40 mg PO BID #60 caps 11/04/24 01/10/25 Rx capsule,delayed release famotidine 40 mg tablet 40 mg PO QHS #30 tabs 11/04/24 Unknown Rx Allergy/AdvReac Type Severity Reaction Status Date / Time Penicillins (PCN) Allergy Unknown Verified 01/10/25 07:48 Family History Grandfather Colon cancer Father Hypertension High cholesterol Esophageal cancer Mother Diabetes Anxiety Surgical History (Updated 01/06/25 @ 12:35 by Mckayla Hinton) Hx of appendectomy Social History Smoking Status: Current every day smoker tobacco type: cigarettes Tobacco: How many years used: 18 second hand exposure: No alcohol intake: former year quit: 2019 substance use type: does not use what type of physical activity do you participate in: none teri/yazidism: Denominational seatbelt use: sometimes Review of Systems (Anesthesia) ROS Narrative System reviewed and no additional complaints, except as documented. Physical Exam Const alert and oriented x3 HEENT dentition normal Neck full ROM Resp normal respiratory effort and normal air movement Cardio regular rate and regular rhythm Neuro oriented x3 and moves all extremities
--- NOTE | 2025-01-10 08:30 | EGD_PTH ---
PATIENT: ISAIAS MAZARIEGOS LOC: EN U#:[id number] AGE/SX: 39/M ROOM: RE01/10/[address]: Dr. Pritesh Kahn DO : 1985 BED: DIS: 01/10/2025 SPEC #: [id number] RECD: 01/10/25 09:51 STATUS: HIEN MARCELA #: [id number] GRACIE: 01/10/25 08:[address]: Pritesh Kahn DEPT: SURGICAL PATHOLOGY RECD BY: Milo Keita ENTERED: 01/10/25 11:12 SP TYPE: EGD BIOPSY RODERICK DR: Dr. Edward Jose MD Tissues: A - Esophagus, NOS B - Duodenum, NOS Procedures: Surgery Specimen Level IV HEADER OPERATION: EGD, biopsy PRE-OP DIAGNOSIS: Constipation, abdominal pain, hepatic steatosis TISSUE SUBMITTED: A- Distal esophagus biopsy, B- Duodenum biopsy MICROSCOPIC DIAGNOSIS A. Distal esophagus, biopsies: - Benign squamous epithelium without active inflammation - Oxynto-cardiac mucosa with chronic inflammation - No goblet cell metaplasia is identified B. Small intestine, duodenum: * Irregularly blunted villi with an increased mixed lymphoplasmacytic, eosinophilic, and neutrophilic inflammatory cell infiltrate in the lamina propria and focally extending into the epithelium (See COMMENT) COMMENT: The histopathological features in Part B are etiologically nonspecific and the differential diagnosis includes sensitivity to gluten and non-gluten proteins, small intestinal bacterial overgrowth, stasis related changes, infection, protein calorie malnutrition, tropical sprue, and medication injury. If celiac disease is a clinical concern, additional studies, such as tTG-IgA, are recommended. MICROSCOPIC DESCRIPTION Slides are reviewed. GROSS DESCRIPTION A. Received in fixative is one container labeled with the patient's name and designated "Distal esophagus biopsy." The specimen consists of three irregular fragments of light forrester soft tissue that in aggregate measure 0.4 to 0.5 cm. The specimen is totally submitted in one cassette. B. Received in fixative is one container labeled with the patient's name and designated "Duodenum biopsy." The specimen consists of two irregular fragments of light forrester soft tissue that in aggregate measure 0.3 and 0.5 cm. The specimen is totally submitted in one cassette. JEZ/ 01/10/2025 CPT:62703t8
--- NOTE | 2025-01-10 09:08 | HP.PCM_ITS ---
[facility] - General General Date of Admission: 01/10/25 Date of Service: 01/10/25 HPI Narrative ISAIAS MAZARIEGOS, is a 39 M who presents regarding concerns of RUQ abdominal pain after eating and change in bowel habits. He reports that his father was recently diagnosed with esophageal cancer and underwent an esophagectomy with partial gastrectomy. He wants to further investigate his complaints. He reports an abdominal US done in June that his PCP reported to him he had a fatty liver, but does not fully understand this diagnosis and its repercussions. US did not show any calcifications, sludge, or distention to gallbladder or ducts. He reports he very distinctly remembers having sharp RUQ abdominal pains after eating a greasy meal and took note not to repeat. He states that he used to drink beer heavily, but stopped several years ago. He reports that his bowels "used to move daily" and now he reports BMs every 2 days, with 3 days being the longest and this results in very painful to pass large caliber stool. He reports a hemorrhoid that has been bothering him for a little while, states it gets really itchy and bothersome to sit on when I have to wait to have a BM." He reportedly consumes a lot of caffeine and smokes 1/2ppd. He reports that he just recently started using a "tiny bit" of ClearLax and taking daily psyllium husk and this has helped his BM frequency. He states that he wakes about 2 hours after going to bed with bad heartburn. States that he eats around 9p and will go to bed at 10ish. He denies difficulty chewing and swallowing, cough, throat clearing, sinus drainage, reflux, nausea, emesis, abdominal bloating, diarrhea, hematochezia, and melena. [facility] Medical History Anxiety Back pain Injury of head and neck Blackout Gastric reflux Asthma Smoker History of pain when walking History of stress test Home Medications Medication Instructions Recorded Last Taken Type albuterol sulfate 90 mcg/actuation 2 puff inhalation Q 6H PRN 09/01/20 Unknown Rx aerosol inhaler (Ventolin HFA) shortness of breath or wheezing #18 grams naproxen 500 mg tablet 500 mg PO BID PRN headache/n tori 05/05/23 Unknown Rx pain #60 tabs esomeprazole magnesium 40 mg 40 mg PO BID #60 caps 02/2101/10/25 Rx capsule,delayed release famotidine 40 mg tablet 40 mg PO QHS #30 tabs Unknown Rx Allergy/AdvReac Type Severity Reaction Status Date / Time Penicillins (PCN) Allergy Unknown Verified 01/10/25 07:48 Family History Grandfather Colon cancer Father Hypertension High cholesterol Esophageal cancer Mother Diabetes Anxiety Surgical History Hx of appendectomy Social History Smoking Status: Current every day smoker tobacco type: cigarettes Tobacco: How many years used: 18 second hand exposure: No alcohol intake: former year quit: 2019 substance use type: does not use what type of physical activity do you participate in: none teri/faith: Congregational seatbelt use: sometimes ROS Constitutional Constitutional: Denies fatigue, fever(s), poor appetite, weight gain or weight loss Gastrointestinal Gastrointestinal: Denies belching, bloating, change in bowel habits, change in stool character, chewing difficulty, coffee ground emesis, constipation, cramping, diarrhea, dyspepsia, dysphagia, early satiety, excessive flatus, fecal incontinence, heartburn, hematemesis, hematochezia, hemorrhoids, loose stools, melena, nausea, odynophagia, rectal bleeding, tenesmus, vomiting or weight changes Vital Signs Vital Signs Vital Signs: 01/10/25 07:49 01/10/25 07:49 01/10/25 08:13 Temperature 97.8 F 97.8 F Temperature Source Temporal Pulse Rate 82 82 Respiratory Rate 16 16 Respiratory Pattern Normal Blood Pressure 106/77 106/77 Blood Pressure Mean 86 Blood Pressure Source Monitor Blood Pressure Position Sitting Blood Pressure Location Left Arm Pulse Ox 97 97 Oxygen Delivery Method Room Air Room Air Weight Weight: 185 lb 3.013 oz Body Mass Index (BMI) 26.5 Physical Exam Const alert, oriented x3, no apparent distress and healthy appearing General Appearance: cooperative GI normal to inspection, nondistended, normoactive bowel sounds, soft to palpation, non-tender and non-distended Percussion: normal to percussion Rectal Exam: deferred Assessment & Plan Assessment/Plan (1) Abdominal pain: QUALIFIERS: Abdominal location: right upper quadrant Qualified Code(s): R10.11 - Right upper quadrant pain (2) GERD (gastroesophageal reflux disease): PLAN: Assessment and Plan Assessment and Plan (1) Constipation: Status: Acute Qualifiers: Constipation type: unspecified constipation type Qualified Code(s): K59.00 - Constipation, unspecified (2) Abdominal pain: Status: Acute Qualifiers: Abdominal location: right upper quadrant Qualified Code(s): R10.11 - Right upper quadrant pain (3) Hepatic steatosis: Status: Acute Orders: Orders Calprotectin, Stool Today K21.9 - Gastro-esophageal reflux disease without esophagitis, K59.00 - Constipation, unspecified, R10.9 - Unspecified abdominal pain CBC W/Diff, Automated Today K21.9 - Gastro-esophageal reflux disease without esophagitis, K59.00 - Constipation, unspecified, R10.9 - Unspecified abdominal pain Comprehensive Metabolic Profil Today K21.9 - Gastro-esophageal reflux disease without esophagitis, K59.00 - Constipation, unspecified, R10.9 - Unspecified abdominal pain CRP Today K21.9 - Gastro-esophageal reflux disease without esophagitis, K59.00 - Constipation, unspecified, R10.9 - Unspecified abdominal pain ABD Limited w/ Elastography Today K21.9 - Gastro-esophageal reflux disease without esophagitis, K59.00 - Constipation, unspecified, R10.9 - Unspecified abdominal pain Lipid Profile Today K21.9 - Gastro-esophageal reflux disease without esophagitis, K59.00 - Constipation, unspecified, R10.9 - Unspecified abdominal pain Triglycerides Today K21.9 - Gastro-esophageal reflux disease without esophagitis, K59.00 - Constipation, unspecified, R10.9 - Unspecified abdominal pain Hemoglobin A1c Today K21.9 - Gastro-esophageal reflux disease without esophagitis, K59.00 - Constipation, unspecified, R10.9 - Unspecified abdominal pain Hepatobilliary Img w/Pharm Int Today K21.9 - Gastro-esophageal reflux disease without esophagitis, K59.00 - Constipation, unspecified, R10.9 - Unspecified abdominal pain Medications: New esomeprazole magnesium Take on empty stomach, 30 minutes before eating breakfast and supper. 40 mg PO BID 60 caps 3RF famotidine 40 mg PO QHS 30 tabs 3RF Plan ISAIAS MAZARIEGOS, is a 38 M who presents to the office today for establishment with [facility] regarding concerns of RUQ abdominal pain after eating and change in bowel habits. Differential diagnoses include: GERD, biliary dyskinesia, fatty liver. Discussed care plan: * recommended nightly phenylephrine rectal suppositories x7, cleanse w/witch mann, phenylephrine topical ointment externally * continue psyllium husk daily, increase dietary fibers and water * reduce caffeine consumption to 1 cup of black coffee * schedule EGD to evaluate esophagus * Ltd abd US w/elastography * HIDA scan w/[facility]K to evaluate GB function * fecal calprotectin * blood for baseline liver establishment * esomeprazole 40mg PO twice daily 30minutes before breakfast and supper * famotidine 40mg PO QHS * office FU for results
--- NOTE | 2025-01-10 09:42 | OP.CCLET_ITS ---
01/10/2025 Edward Jose [address] [place] [address] Re : Upper GI endoscopy procedure for Lopez Faustin Dear Dr. Jose This procedure was performed on Friday, January 10, 2025. My impressions and recommendations are as follows: Impressions : - Z-line irregular, 40 cm from the incisors. Biopsied. - Normal stomach. - Chronic duodenitis. Biopsied. Recommendations : - Discharge patient to home. - Resume previous diet. - Continue present medications. - Await pathology results. My findings are described in the full procedure note, which is enclosed. If I can be of further assistance, please feel free to contact me at . Sincerely, Pritesh Kahn, 01/10/2025 9:42:04 AM This report has been signed electronically.
--- NOTE | 2025-01-10 09:42 | OP.EGD_ITS ---
Patient Name: Lopez Faustin Procedure Date: 01/10/2025 9:13 AM Date of : 1985 Age: 39 Procedure: Upper GI endoscopy Indications: Heartburn Providers: DO Sandra Quintana MD: Edward Jose Medicines: Monitored Anesthesia Care Patient Profile: This is a 39 year old male. Refer to note in patient chart for documentation of history and physical. Patient has symptoms. Complications: No immediate complications. Procedure: Pre-Anesthesia Assessment: - Prior to the procedure, a History and Physical was performed, and patient medications and allergies were reviewed. The patient is competent. The risks and benefits of the procedure and the sedation options and risks were discussed with the patient. All questions were answered and informed consent was obtained. Patient identification and proposed procedure were verified by the physician in the pre-procedure area. Mental Status Examination: alert and oriented. Airway Examination: normal oropharyngeal airway and neck mobility. Respiratory Examination: clear to auscultation. CV Examination: normal. ASA Grade Assessment: II - A patient with mild systemic disease. After reviewing the risks and benefits, the patient was deemed in satisfactory condition to undergo the procedure. The anesthesia plan was to use monitored anesthesia care (MAC). Immediately prior to administration of medications, the patient was re-assessed for adequacy to receive sedatives. The heart rate, respiratory rate, oxygen saturations, blood pressure, adequacy of pulmonary ventilation, and response to care were monitored throughout the procedure. The physical status of the patient was re-assessed after the procedure. After obtaining informed consent, the endoscope was passed under direct vision. Throughout the procedure, the patient's blood pressure, pulse, and oxygen saturations were monitored continuously. The gastroscope was introduced through the mouth, and advanced to the second part of duodenum. The upper GI endoscopy was accomplished without difficulty. The patient tolerated the procedure well. Scope In: 9:26:58 AM Scope Out: 9:31:34 AM Total Procedure Duration Time 0 hours 4 minutes 36 seconds Findings: The Z-line was irregular and was found 40 cm from the incisors. Biopsies were taken with a cold forceps for histology. Verification of patient identification for the specimen was done. Estimated blood loss: none. The entire examined stomach was normal. Patchy mild inflammation characterized by erythema and granularity was found in the duodenal bulb. Biopsies were taken with a cold forceps for histology. Verification of patient identification for the specimen was done. Estimated blood loss was minimal. Impression: - Z-line irregular, 40 cm from the incisors. Biopsied. - Normal stomach. - Chronic duodenitis. Biopsied. Recommendation: - Discharge patient to home. - Resume previous diet. - Continue present medications. - Await pathology results. Procedure Code(s): --- Professional --- 65111, Esophagogastroduodenoscopy, flexible, transoral; with biopsy, single or multiple CPT copyright 2021 [employer]. All rights reserved. The codes documented in this report are preliminary and upon flat machine cutter review may be revised to meet current compliance requirements. Pritesh Kahn DO 01/10/2025 9:42:04 AM This report has been signed electronically. Number of Addenda: 0 Note Initiated On: 01/10/2025 9:13 AM
--- NOTE | 2025-01-10 09:43 | PCM.POST.ANE ---
Anesthesia: Postop Eval I Current Vital Signs Temperature: 97 F Pulse Rate: 70 Blood Pressure: 105/81 Respiratory Rate: 16 Pulse Ox: 93 Oxygen Delivery Method: Room Air Assessment Airway patent: Yes Spontaneous unlabored respirations: Yes Mental status: Asleep nausea: No Vomiting: No Anesthesia Complication: No Fluid Hydration Crystalloid volume administer (ml): 400 Total IV fluid infused: 400 Progress Note Anesthesia document: Postop Eval 1 completed: Yes
--- NOTE | 2025-01-10 10:32 | PCM.POSTANE2 ---
Anesthesia Postop Eval I Sum Postop Eval Completion status Anesthesia document: Postop Eval 1 completed: Yes Anesthesia Postop Eval I Summary Anesthesia Postop Eval I Summary: Anesthesia Postop Eval I: Assessment Summary Airway patent Yes 01/10/25 09:44 [email or web address] Spontaneous unlabored Yes 01/10/25 09:44 [email or web address] respirations Mental status Asleep 01/10/25 09:44 [email or web address] nausea No 01/10/25 09:44 [email or web address] Vomiting No 01/10/25 09:44 [email or web address] Anesthesia Postop Eval I: Fluid Summary Crystalloid volume administer 400 01/10/25 09:44 [email or web address] (ml) Colloids volume administered ( ml) Blood Product volume administered (ml) Total IV fluid infused 400 01/10/25 09:44 [email or web address] Anesthesia Postop Eval I: Summary Notes Anesthesia Complication No 01/10/25 09:44 [email or web address] Anesthesia Complication Comment: Post-operative progress note Anesthesia: Postop Eval II Evaluation Mental status: Awake and Calm Pain Level: 0 nausea: No Vomiting: No Complications Anesthesia Complication: No
== END 2025-01-10 10:22 | disposition home or self-care (01) ==
LOC: EN 07:34 → AC 07:35
PROVIDERS: PCP Family Medicine; Referring Provider Family Medicine; Visit Provider Internal Medicine Gastroenterology
PROC: 0DJ08ZZ Inspection of Upper Intestinal Tract, Via Natural or Artificial Opening Endoscopic (ICD-10-PCS; CPT 43235; principal; 2025-01-10 08:25)
DX: K29.80 Duodenitis without bleeding (principal); K21.00 Gastro-esophageal reflux disease with esophagitis, without bleeding; K59.00 Constipation, unspecified; K76.0 Fatty (change of) liver, not elsewhere classified; J45.909 Unspecified asthma, uncomplicated; F17.200 Nicotine dependence, unspecified, uncomplicated; Z79.899 Other long term (current) drug therapy
CPT/HCPCS: 43239; 88305; J2405

== ENCOUNTER → 2025-01-28 | Outpatient (CLI) | payer OTHER, SELFPAY ==
[2025-02-01 07:08] LABS: Immunoglobulin A 155 mg/dL (90-386)
== END | disposition home or self-care (01) ==
LOC: LAB 16:33
PROVIDERS: PCP Family Medicine
DX: K90.9 Intestinal malabsorption, unspecified (principal)
CPT/HCPCS: 36415; 82784; 83516; 86255